=== PATIENT | male | born 1945 | race Caucasian/White ===

== ENCOUNTER 2020-07-06 09:45 | Outpatient (RCR) | payer MEDICARE, SELFPAY ==
[2020-06-29 08:17] VITALS: BP 138/59; PULSE 56; TEMP 36.4
--- NOTE | 2020-06-29 17:00 | HP.PCM_ITS ---
(1) Ulcer of left lower extremity with fat layer exposed Status: Chronic Code(s): L97.922 - Non-pressure chronic ulcer of unspecified part of left lower leg with fat layer exposed (2) Ulcer of right lower extremity with fat layer exposed Status: Chronic Code(s): L97.912 - Non-pressure chronic ulcer of unspecified part of right lower leg with fat layer exposed (3) Venous insufficiency of both lower extremities Status: Chronic Code(s): I87.2 - Venous insufficiency (chronic) (peripheral) (4) COPD (chronic obstructive pulmonary disease) Status: Chronic Code(s): J44.9 - Chronic obstructive pulmonary disease, unspecified (5) Oxygen dependent Status: Acute Code(s): Z99.81 - Dependence on supplemental oxygen (6) CAD (coronary artery disease) of bypass graft Status: Chronic Code(s): I25.810 - Atherosclerosis of coronary artery bypass graft(s) without angina pectoris History of Present Illness Date of Service: 06/29/20 Chief Complaint: Non Healing bilateral lower extremity ulcer History of Wound: Mr. Lazcano is a 74-year-old with past medical history as documented above who was referred to the wound center by his primary care physician due to nonhealing bilateral lower extremity ulcers. Said to have started months ago. Initially seen by his slip injector and applicator who referred him to a [facility] physician. Has been having todd wraps bilaterally which has helped with the swelling but ulcerations have persisted. He sleeps in a chair/recliner. No similar history in the past. No chills, fever or otherwise feeling of unwell. Past Medical History Past Medical History: Chronic Problems Ulcer of left lower extremity with fat layer exposed (Chronic) Ulcer of right lower extremity with fat layer exposed (Chronic) Venous insufficiency of both lower extremities (Chronic) COPD (chronic obstructive pulmonary disease) (Chronic) CAD (coronary artery disease) of bypass graft (Chronic) Home Medications: Ambulatory Orders Medication Instructions Recorded Apixaban [Eliquis] 5 mg 06/29/20 Aspirin/Calcium Carbonate [Lynn 81 mg PO DAILY 06/29/20 Women's Aspirin Tablet] Citalopram [Celexa] 20 mg PO DAILY 06/29/20 Doxazosin Mesylate [Cardura] 1 mg PO QHS 06/29/20 Ezetimibe 10 mg PO DAILY 06/29/20 Folic Acid 800 mg PO DAILY 06/29/20 Furosemide [Lasix] 40 mg PO 06/29/20 Metoprolol Succinate 25 mg PO DAILY 06/29/20 Potassium Chloride 20 meq 06/29/20 Pravastatin [Pravachol] QHS 06/29/20 Review of Systems Constitutional: Denies: Anorexia, Chills, Fever, Night Sweats Eyes: Denies: Blurred vision, Pain, Redness HEENT: Denies: Difficulty Swallowing, Head Aches, Sinus Drainage Cardiovascular: Denies: Chest Pain, Claudication, Chest Pressure, Chest Tightness Respiratory: Denies: Cough, Hemoptysis, Pleuritic Pain, Shortness of Breath Gastrointestinal: Denies: Abdominal Pain, Hematemesis, Vomiting Genitourinary: Denies: Hematuria Skin: Denies: Jaundice - Physical Exam Vital Signs Temp Pulse BP 97.5 F L 56 L 138/59 H 06/29/20 08:17 06/29/20 08:17 06/29/20 08:17 General: Alert, Oriented x3, Cooperative, No apparent distress HEENT: Atraumatic, Normocephalic Oral: Moist Mucosa Neck: Supple Abdomen: Non Tender, Obese Extremities: No cyanosis, Edema Skin: Ulcer/ Wound Wound Measurements and Assessment WC - Nurse 1 - General Ulcer Measurement Start: 06/29/20 08:17 Freq: Status: Active Protocol: Activity Type Activity Date Activity User E-Sign Co-Sign Detail Recorded Client Recorded Date Recorded By Document 06/29/20 08:17 [email or web address] [id number] 06/29/20 08:54 [email or web address] 06/29/20 08:17 Wound Center Nurse 1 [Ulcer Assessment] #3 LLe Lat -Current Size (cm) - Length 18.5 -Current Size (cm) - Width 16.1 -Current Size (cm) - Depth 0.1 -Total Square Cm 297.85 -Photo Taken Yes -Classification - Thickness Full Thickness without Exposed Support Structure -Exudate Amt Small -Exudate Type Serosanguineous -Wound Margin Indistinct, Non -Visible -Granulation Amt Medium (34-66%) -Granulation Quality Oaks -Necrosis Amt Medium (34-66%) -Necrotic Tissue Type Adherent Slough -Structure Exposed N/A -Texture (Milena-wound Skin Appearance) Scarring -Moisture (Milena-wound Skin Appearance No Abnormality ) -Color (Milena-wound Skin Appearance) No Abnormality -Temperature (Milena-wound Skin No Abnormality Appearance) (Pt Warm) -Tenderness on Palpation (Milena-wound No Skin Appearance) -Ulcer Cleansing Wound Cleanser -Foul Odor after Cleansing No -Anesthetic Used 4% Lidocaine Solution #2 LLE MEd -Current Size (cm) - Length 15.2 -Current Size (cm) - Width 4.6 -Current Size (cm) - Depth 0.1 -Total Square Cm 69.92 -Photo Taken Yes -Classification - Thickness Full Thickness without Exposed Support Structure -Exudate Amt Small -Exudate Type Serosanguineous -Wound Margin Indistinct, Non -Visible -Granulation Amt Medium (34-66%) -Granulation Quality Red -Necrosis Amt Medium (34-66%) -Necrotic Tissue Type Adherent Slough -Structure Exposed N/A -Texture (Milena-wound Skin Appearance) Scarring -Moisture (Milena-wound Skin Appearance Dry/Scaly ) -Color (Milena-wound Skin Appearance) No Abnormality -Temperature (Milena-wound Skin No Abnormality Appearance) (Pt Warm) -Tenderness on Palpation (Milena-wound No Skin Appearance) -Ulcer Cleansing Wound Cleanser -Foul Odor after Cleansing No -Anesthetic Used 4% Lidocaine Solution #1 RLE Cluster -Current Size (cm) - Length 19.5 -Current Size (cm) - Width 17.9 -Current Size (cm) - Depth 0.1 -Total Square Cm 349.05 -Photo Taken Yes -Classification - Thickness Full Thickness without Exposed Support Structure -Exudate Amt Medium -Exudate Type Serosanguineous -Wound Margin Indistinct, Non -Visible -Granulation Amt Medium (34-66%) -Granulation Quality Oaks -Necrosis Amt Medium (34-66%) -Necrotic Tissue Type Adherent Slough -Structure Exposed N/A -Texture (Milena-wound Skin Appearance) Scarring -Moisture (Milena-wound Skin Appearance No Abnormality ) -Color (Milena-wound Skin Appearance) No Abnormality -Temperature (Milena-wound Skin No Abnormality Appearance) (Pt Warm) -Ulcer Cleansing Wound Cleanser -Foul Odor after Cleansing No -Anesthetic Used 4% Lidocaine Solution [Edema Assessment] -Right Calf (cm) 38.5 -Right Ankle (cm) 26 -Left Calf (cm) 39 -Left Ankle (cm) 26 WC - Nurse 2 - General Ulcer CM Notes Start: 06/29/20 08:17 Freq: Status: Active Protocol: Activity Type Activity Date Activity User E-Sign Co-Sign Detail Recorded Client Recorded Date Recorded By Document 06/29/20 09:08 MW [id number] 06/29/20 09:22 MW 06/29/20 09:08 Wound Center Nurse 2 [Procedure/Treatment] #3 LLe Lat -Time 09:09 -Correct Patient Yes -Correct Side, Site, Position Yes -Correct Procedure Yes -Procedure Performed Yes -Type of Procedure Debridement -Clinical Debridement Subcutaneous -Tissue Removed Subcutaneous -Post Debridement (cm) - Length 16.0 -Post Debridement (cm) - Width 9.0 -Post Debridement (cm) - Depth 0.1 -Total Square (Post) (cm) 144.00 -Area of Debridement (cm) - Length 16.0 -Area of Debridement (cm) - Width 9.0 -Total Square (Area) (cm) 144.00 -Tunneling No -Undermining/Tunneling No -Circular Undermining No -Wound/Ulcer Outcome Not Healed -Ulcer Cleansing Rinsed/ Irrigated with Saline -Foul Odor after Cleansing No -Bioengineered Tissue No -Bleeding Controlled with Pressure -Offloading No -Treatment Response Procedure Tolerated Well -Debridement - Subq, 1st 20sq cm Yes -Debridement, SubQ, ea addt'l 20sq cm 32 or part thereof #2 LLE MEd -Time 09:09 -Correct Patient Yes -Correct Side, Site, Position Yes -Correct Procedure Yes -Procedure Performed Yes -Type of Procedure Debridement -Clinical Debridement Subcutaneous -Tissue Removed Subcutaneous -Post Debridement (cm) - Length 9.0 -Post Debridement (cm) - Width 6.5 -Post Debridement (cm) - Depth 0.1 -Total Square (Post) (cm) 58.50 -Area of Debridement (cm) - Length 9.0 -Area of Debridement (cm) - Width 6.5 -Total Square (Area) (cm) 58.50 -Tunneling No -Undermining/Tunneling No -Circular Undermining No -Wound/Ulcer Outcome Not Healed -Ulcer Cleansing Rinsed/ Irrigated with Saline -Foul Odor after Cleansing No -Bioengineered Tissue No -Bleeding Controlled with Pressure -Offloading No -Treatment Response Procedure Tolerated Well -Debridement - Subq, 1st 20sq cm No #1 RLE Cluster -Time 09:09 -Correct Patient Yes -Correct Side, Site, Position Yes -Correct Procedure Yes -Procedure Performed Yes -Type of Procedure Debridement -Clinical Debridement Subcutaneous -Tissue Removed Subcutaneous -Post Debridement (cm) - Length 28.0 -Post Debridement (cm) - Width 16.0 -Post Debridement (cm) - Depth 0.1 -Total Square (Post) (cm) 448.00 -Area of Debridement (cm) - Length 28.0 -Area of Debridement (cm) - Width 16.0 -Total Square (Area) (cm) 448.00 -Tunneling No -Undermining/Tunneling No -Circular Undermining No -Wound/Ulcer Outcome Not Healed -Ulcer Cleansing Rinsed/ Irrigated with Saline -Foul Odor after Cleansing No -Bioengineered Tissue No -Bleeding Controlled with Pressure -Offloading No -Treatment Response Procedure Tolerated Well -Debridement - Subq, 1st 20sq cm No [See Physician Procedure note for Specifics] Pain Scale: 0-10 Numeric [Pain] -Is Patient Pain Free? Yes WC - Nurse 3 - General Ulcer D/C NN Start: 06/29/20 08:17 Freq: Status: Active Protocol: Activity Type Activity Date Activity User E-Sign Co-Sign Detail Recorded Client Recorded Date Recorded By Document 06/29/20 09:52 DL [id number] 06/29/20 09:55 DL 06/29/20 09:52 Wound Care Nurse 3 [Wound Dressing] #3 LLe Lat -Ulcer Cleansing Wound Cleanser -Foul Odor after Cleansing No -Primary Dressing Applied Aquacel Extra, NonAdherent Contact Layer -Primary Dressing Covered/Secured Dry Gauze & with Roll Gauze, Secured with Tape -Aquacel Extra 1 #2 LLE MEd -Ulcer Cleansing Rinsed/ Irrigated with Saline -Foul Odor after Cleansing No -Primary Dressing Applied NonAdherent Contact Layer -Other Dressing aquacel ag -Primary Dressing Covered/Secured Dry Gauze & with Roll Gauze, Secured with Tape -Other Covering xerform #1 RLE Cluster -Ulcer Cleansing Rinsed/ Irrigated with Saline -Foul Odor after Cleansing No -Primary Dressing Applied NonAdherent Contact Layer -Other Dressing aquacel ag -Primary Dressing Covered/Secured Dry Gauze & with Roll Gauze, Secured with Tape -Other Covering xeroform [Compression Applied] Left -Tubular Bandage Double Layer -Size of Tubigrip Used Size E Right -Tubular Bandage Double Layer -Size of Tubigrip Used Size E -Size E ($) 2 [Post Procedure Tolerated] -Treatment Response Procedure Tolerated Well Pain Scale: 0-10 Numeric [Pain] -Is Patient Pain Free? Yes WC - Visit Discharge [Visit Discharge Information] -Discharge Condition Stable -Ambulatory Status Ambulatory -Transportation Private Auto [Facility Notification] -Facility Type Home Health -Orders Sent Yes Musculoskeletal: No Muscle Wasting Neurological: Cranial nerves II-XII grossly intact Psych/Mental Status: Normal Affect Debridement Note Post-Debridement Measurements/Treatment WC - Nurse 2 - General Ulcer CM Notes Start: 06/29/20 08:17 Freq: Status: Active Protocol: Activity Type Activity Date Activity User E-Sign Co-Sign Detail Recorded Client Recorded Date Recorded By Document 06/29/20 09:08 MW [id number] 06/29/20 09:22 MW 06/29/20 09:08 Wound Center Nurse 2 #3 LLe Lat -Time 09:09 -Correct Patient Yes -Correct Side, Site, Position Yes -Correct Procedure Yes -Procedure Performed Yes -Type of Procedure Debridement -Clinical Debridement Subcutaneous -Tissue Removed Subcutaneous -Post Debridement (cm) - Length 16.0 -Post Debridement (cm) - Width 9.0 -Post Debridement (cm) - Depth 0.1 -Total Square (Post) (cm) 144.00 -Area of Debridement (cm) - Length 16.0 -Area of Debridement (cm) - Width 9.0 -Total Square (Area) (cm) 144.00 -Tunneling No -Undermining/Tunneling No -Circular Undermining No -Wound/Ulcer Outcome Not Healed -Ulcer Cleansing Rinsed/ Irrigated with Saline -Foul Odor after Cleansing No -Bioengineered Tissue No -Bleeding Controlled with Pressure -Offloading No -Treatment Response Procedure Tolerated Well -Debridement - Subq, 1st 20sq cm Yes -Debridement, SubQ, ea addt'l 20sq cm 32 or part thereof #2 LLE MEd -Time 09:09 -Correct Patient Yes -Correct Side, Site, Position Yes -Correct Procedure Yes -Procedure Performed Yes -Type of Procedure Debridement -Clinical Debridement Subcutaneous -Tissue Removed Subcutaneous -Post Debridement (cm) - Length 9.0 -Post Debridement (cm) - Width 6.5 -Post Debridement (cm) - Depth 0.1 -Total Square (Post) (cm) 58.50 -Area of Debridement (cm) - Length 9.0 -Area of Debridement (cm) - Width 6.5 -Total Square (Area) (cm) 58.50 -Tunneling No -Undermining/Tunneling No -Circular Undermining No -Wound/Ulcer Outcome Not Healed -Ulcer Cleansing Rinsed/ Irrigated with Saline -Foul Odor after Cleansing No -Bioengineered Tissue No -Bleeding Controlled with Pressure -Offloading No -Treatment Response Procedure Tolerated Well -Debridement - Subq, 1st 20sq cm No #1 RLE Cluster -Time 09:09 -Correct Patient Yes -Correct Side, Site, Position Yes -Correct Procedure Yes -Procedure Performed Yes -Type of Procedure Debridement -Clinical Debridement Subcutaneous -Tissue Removed Subcutaneous -Post Debridement (cm) - Length 28.0 -Post Debridement (cm) - Width 16.0 -Post Debridement (cm) - Depth 0.1 -Total Square (Post) (cm) 448.00 -Area of Debridement (cm) - Length 28.0 -Area of Debridement (cm) - Width 16.0 -Total Square (Area) (cm) 448.00 -Tunneling No -Undermining/Tunneling No -Circular Undermining No -Wound/Ulcer Outcome Not Healed -Ulcer Cleansing Rinsed/ Irrigated with Saline -Foul Odor after Cleansing No -Bioengineered Tissue No -Bleeding Controlled with Pressure -Offloading No -Treatment Response Procedure Tolerated Well -Debridement - Subq, 1st 20sq cm No Pain Scale: 0-10 Numeric Is Patient Pain Free? Yes WC - Nurse 3 - General Ulcer D/C NN Start: 06/29/20 08:17 Freq: Status: Active Protocol: Activity Type Activity Date Activity User E-Sign Co-Sign Detail Recorded Client Recorded Date Recorded By Document 06/29/20 09:52 DL [id number] 06/29/20 09:55 DL 06/29/20 09:52 Wound Care Nurse 3 #3 LLe Lat -Ulcer Cleansing Wound Cleanser -Foul Odor after Cleansing No -Primary Dressing Applied Aquacel Extra, NonAdherent Contact Layer -Primary Dressing Covered/Secured with Dry Gauze & Roll Gauze, Secured with Tape -Aquacel Extra 1 #2 LLE MEd -Ulcer Cleansing Rinsed/ Irrigated with Saline -Foul Odor after Cleansing No -Primary Dressing Applied NonAdherent Contact Layer -Other Dressing aquacel ag -Primary Dressing Covered/Secured with Dry Gauze & Roll Gauze, Secured with Tape -Other Covering xerform #1 RLE Cluster -Ulcer Cleansing Rinsed/ Irrigated with Saline -Foul Odor after Cleansing No -Primary Dressing Applied NonAdherent Contact Layer -Other Dressing aquacel ag -Primary Dressing Covered/Secured with Dry Gauze & Roll Gauze, Secured with Tape -Other Covering xeroform Left -Tubular Bandage Double Layer -Size of Tubigrip Used Size E Right -Tubular Bandage Double Layer -Size of Tubigrip Used Size E -Size E ($) 2 Treatment Response Procedure Tolerated Well Pain Scale: 0-10 Numeric Is Patient Pain Free? Yes WC - Visit Discharge Discharge Condition Stable Ambulatory Status Ambulatory Transportation Private [facility] Facility Type Home Health Orders Sent Yes Wound debrided: Right lower extremity cluster Type of Debridement: Excisional debridement Anesthesia Used: 4% Lidocaine Solution Depth: Down to and including healthy tissue, in the subcutaneous layer Percentage of wound debrided: 100 Instrument Used: 7mm curette Tissue Removed: Slough and devitalized tissue Severity: Fat Layer Exposed Amount of bleeding with debridement: Mild Bleeding Controlled with: Pressure Patient tolerated procedure well - Additional Wound Wound debrided: Left lower extremity medial cluster Type of Debridement: Excisional debridement Anesthesia Used: 4% Lidocaine Solution Depth: Down to and including healthy tissue, in the subcutaneous layer Percentage of wound debrided: 100 Instrument Used: 7mm curette Tissue Removed: Slough and devitalized tissue Severity: Fat Layer Exposed Amount of bleeding with debridement: Mild Bleeding Controlled with: Pressure Patient tolerated procedure: Patient tolerated procedure well - Additional Wound Wound debrided: Left lower extremity lateral cluster Type of Debridement: Excisional debridement Anesthesia Used: 4% Lidocaine Solution Depth: Down to and including healthy tissue, in the subcutaneous layer Percentage of wound debrided: 100 Instrument Used: 5mm curette Tissue Removed: Slough and devitalized tissue Severity: Fat Layer Exposed Amount of bleeding with debridement: Mild Bleeding Controlled with: Pressure Patient tolerated procedure: Patient tolerated procedure well Assessment/Plan Active Problems Ulcer of left lower extremity with fat layer exposed (Chronic) Ulcer of right lower extremity with fat layer exposed (Chronic) Venous insufficiency of both lower extremities (Chronic) COPD (chronic obstructive pulmonary disease) (Chronic) Oxygen dependent (Acute) CAD (coronary artery disease) of bypass graft (Chronic) Assessment: Nonhealing bilateral lower extremity ulcers secondary to venous insufficiency. Plan: Debridement done as documented above, procedure was well-tolerated. Venous and vascular studies ordered. Aquacel to open areas with Xeroform over reddened areas. Change daily. Double layer Tubigrip's and Todd wraps for edema management. Elevate lower extremities when seated and in bed. Increase protein intake, vitamin C and zinc recommended. Their questions were answered and they were advised to call with any further questions or concerns. We will get recent labs from PCP. Follow-up in a week. This note was generated with [employer] dictation software. It may contain incorrect words, spelling, and punctuation that were not noted in checking the note before signing. Multi Select Codes - Visit Charges Office Visit/Consults: 68985 OV L4 New - Integumentary Integumentary CPT Codes: 41295 June subq tissue 20 sq cm/< - Additional square centimeter debrided ( x 32 ), please refer to clinical note.
[2020-07-06 09:43] VITALS: BP 119/50; PULSE 68; TEMP 36.7
--- NOTE | 2020-07-06 14:11 | PN.PCM_ITS ---
History of Present Illness Date of Service: 07/06/20 Chief Complaint: Non Healing bilateral lower extremity ulcer History of Wound: Mr. Lazcano is a 74-year-old with past medical history as documented above who was referred to the wound center by his primary care physician due to nonhealing bilateral lower extremity ulcers. Said to have started months ago. Initially seen by his financial specialist who referred him to a primary care physician. Has been having ary wraps bilaterally which has helped with the swelling but ulcerations have persisted. He sleeps in a chair/recliner. No similar history in the past. No chills, fever or otherwise feeling of unwell. Subjective Subjective: No new concerns at this time. Ulcers said to be improving. Objective Data Objective Data Vital Signs: Vital Signs Temp Pulse BP 98.0 F 68 119/50 L 07/06/20 09:43 07/06/20 09:43 07/06/20 09:43 Exam Physical Exam Const alert, oriented x3 and no apparent distress General Appearance: cooperative HEENT normocephalic and hearing grossly normal bilaterally Head and Scalp: normal to inspection and atraumatic Eyes EOMs intact bilaterally Neck full ROM and supple General: normal visual inspection Resp normal respiratory effort Effort and Inspection: able to speak in complete sentences Skin Wounds: wounds noted Neuro oriented x3, CN's II-XII intact bilaterally and moves all extremities Psych mental status grossly normal Appearance: grossly normal Assessment and Debridement #1 RLE Cluster: Wound Measurements and Assessment WC - Nurse 1 - General Ulcer Measurement Start: 06/29/20 08:17 Freq: Status: Active Protocol: Activity Type Activity Date Activity User E-Sign Co-Sign Detail Recorded Client Recorded Date Recorded By Document 07/06/20 09:43 [email or web address] [id number] 07/06/20 09:54 CATRACHITA 07/06/20 09:43 Wound Center Nurse 1 [Ulcer Assessment] #3 LLe Lat -Current Size (cm) - Length 14 -Current Size (cm) - Width 8 -Current Size (cm) - Depth 0.1 -Total Square Cm 112 -Exudate Amt Medium -Exudate Type Serosanguineous -Wound Margin Distinct, Outline Attached -Granulation Amt Large (67-100%) -Granulation Quality Red -Slough/Fibrin No -Texture (Milena-wound Skin Appearance) Assessed, Scarring -Moisture (Milena-wound Skin Appearance No Abnormality, ) Assessed -Color (Milena-wound Skin Appearance) No Abnormality, Assessed -Temperature (Milena-wound Skin No Abnormality Appearance) (Pt Warm) -Tenderness on Palpation (Milena-wound No Skin Appearance) -Ulcer Cleansing Rinsed/ Irrigated with Saline -Foul Odor after Cleansing No -Anesthetic Used 4% Lidocaine Solution #2 LLE MEd -Current Size (cm) - Length 6 -Current Size (cm) - Width 5.5 -Current Size (cm) - Depth 0.1 -Total Square Cm 33.0 -Exudate Amt Medium -Exudate Type Serosanguineous -Wound Margin Distinct, Outline Attached -Granulation Amt Large (67-100%) -Granulation Quality Red -Slough/Fibrin No -Texture (Milena-wound Skin Appearance) Assessed, Scarring -Moisture (Milena-wound Skin Appearance No Abnormality, ) Assessed -Color (Milena-wound Skin Appearance) No Abnormality, Assessed -Temperature (Milena-wound Skin No Abnormality Appearance) (Pt Warm) -Tenderness on Palpation (Milena-wound No Skin Appearance) -Ulcer Cleansing Rinsed/ Irrigated with Saline -Foul Odor after Cleansing No -Anesthetic Used 4% Lidocaine Solution #1 RLE Cluster -Current Size (cm) - Length 20 -Current Size (cm) - Width 10 -Current Size (cm) - Depth 0.1 -Total Square Cm 200 -Exudate Amt Medium -Exudate Type Serosanguineous -Wound Margin Distinct, Outline Attached -Granulation Amt Large (67-100%) -Granulation Quality Red -Slough/Fibrin No -Texture (Milena-wound Skin Appearance) Assessed, Scarring -Moisture (Milena-wound Skin Appearance No Abnormality, ) Assessed -Color (Milena-wound Skin Appearance) No Abnormality, Assessed -Temperature (Milena-wound Skin No Abnormality Appearance) (Pt Warm) -Tenderness on Palpation (Milena-wound No Skin Appearance) -Ulcer Cleansing Rinsed/ Irrigated with Saline -Foul Odor after Cleansing No -Anesthetic Used 4% Lidocaine Solution [Edema Assessment] -Right Calf (cm) 39 -Right Ankle (cm) 27 -Left Calf (cm) 40 -Left Ankle (cm) 29 WC - Nurse 2 - General Ulcer CM Notes Start: 06/29/20 08:17 Freq: Status: Active Protocol: Activity Type Activity Date Activity User E-Sign Co-Sign Detail Recorded Client Recorded Date Recorded By Document 07/06/20 10:31 MW [id number] 07/06/20 10:41 MW 07/06/20 10:31 Wound Center Nurse 2 [Procedure/Treatment] #4 left velazquez cluster -Time 10:40 -Correct Patient Yes -Correct Side, Site, Position Yes -Correct Procedure Yes -Procedure Performed Yes -Type of Procedure Debridement -Clinical Debridement Subcutaneous -Tissue Removed Subcutaneous -Post Debridement (cm) - Length 10.0 -Post Debridement (cm) - Width 2.0 -Post Debridement (cm) - Depth 0.1 -Total Square (Post) (cm) 20.00 -Area of Debridement (cm) - Length 10.0 -Area of Debridement (cm) - Width 2.0 -Total Square (Area) (cm) 20.00 -Tunneling No -Undermining/Tunneling No -Circular Undermining No -Wound/Ulcer Outcome Not Healed -Ulcer Cleansing Rinsed/ Irrigated with Saline -Foul Odor after Cleansing No -Bioengineered Tissue No -Bleeding Controlled with Pressure -Offloading No -Treatment Response Procedure Tolerated Well -Debridement - Subq, 1st 20sq cm No #3 LLe Lat -Time 10:31 -Correct Patient Yes -Correct Side, Site, Position Yes -Correct Procedure Yes -Procedure Performed Yes -Type of Procedure Debridement -Clinical Debridement Subcutaneous -Tissue Removed Subcutaneous -Post Debridement (cm) - Length 0.1 -Post Debridement (cm) - Width 0.1 -Post Debridement (cm) - Depth 0.1 -Total Square (Post) (cm) 0.01 -Area of Debridement (cm) - Length 0.1 -Area of Debridement (cm) - Width 0.1 -Total Square (Area) (cm) 0.01 -Tunneling No -Undermining/Tunneling No -Circular Undermining No -Wound/Ulcer Outcome Not Healed -Ulcer Cleansing Rinsed/ Irrigated with Saline -Foul Odor after Cleansing No -Bioengineered Tissue No -Bleeding Controlled with Pressure -Offloading No -Treatment Response Procedure Tolerated Well -Debridement - Subq, 1st 20sq cm Yes #2 LLE MEd -Time 10:32 -Correct Patient Yes -Correct Side, Site, Position Yes -Correct Procedure Yes -Procedure Performed Yes -Type of Procedure Debridement -Clinical Debridement Subcutaneous -Tissue Removed Subcutaneous -Post Debridement (cm) - Length 0.1 -Post Debridement (cm) - Width 0.1 -Post Debridement (cm) - Depth 0.1 -Total Square (Post) (cm) 0.01 -Area of Debridement (cm) - Length 0.1 -Area of Debridement (cm) - Width 0.1 -Total Square (Area) (cm) 0.01 -Tunneling No -Undermining/Tunneling No -Circular Undermining No -Wound/Ulcer Outcome Not Healed -Ulcer Cleansing Rinsed/ Irrigated with Saline -Foul Odor after Cleansing No -Bioengineered Tissue No -Bleeding Controlled with Pressure -Offloading No -Treatment Response Procedure Tolerated Well -Debridement - Subq, 1st 20sq cm No #1 RLE Cluster -Time 10:32 -Correct Patient Yes -Correct Side, Site, Position Yes -Correct Procedure Yes -Procedure Performed Yes -Type of Procedure Debridement -Clinical Debridement Subcutaneous -Tissue Removed Subcutaneous -Post Debridement (cm) - Length 15.5 -Post Debridement (cm) - Width 12.0 -Post Debridement (cm) - Depth 0.1 -Total Square (Post) (cm) 186.00 -Area of Debridement (cm) - Length 15.5 -Area of Debridement (cm) - Width 12.0 -Total Square (Area) (cm) 186.00 -Tunneling No -Undermining/Tunneling No -Circular Undermining No -Wound/Ulcer Outcome Not Healed -Ulcer Cleansing Rinsed/ Irrigated with Saline -Foul Odor after Cleansing No -Bioengineered Tissue No -Bleeding Controlled with Pressure -Offloading No -Treatment Response Procedure Tolerated Well -Debridement - Subq, 1st 20sq cm No -Debridement, SubQ, ea addt'l 20sq cm 9 or part thereof [See Physician Procedure note for Specifics] Pain Scale: 0-10 Numeric [Pain] -Is Patient Pain Free? Yes Wound Debrided: Right lower extremity cluster Type of Debridement: Excisional debridement Anesthesia Used: 4% Lidocaine Solution Depth: Down to and including healthy tissue Percentage of Wound Debrided: 100 Instrument Used: 5mm curette Tissue Removed: Slough and devitalized tissue Severity: Fat Layer Exposed Bleeding Controlled with: Pressure Patient Tolerated Procedure: Patient tolerated procedure well #2 LLE MEd: Wound Measurements and Assessment WC - Nurse 1 - General Ulcer Measurement Start: 06/29/20 08:17 Freq: Status: Active Protocol: Activity Type Activity Date Activity User E-Sign Co-Sign Detail Recorded Client Recorded Date Recorded By Document 07/06/20 09:43 [email or web address] [id number] 07/06/20 09:54 CATRACHITA 07/06/20 09:43 Wound Center Nurse 1 [Ulcer Assessment] #3 LLe Lat -Current Size (cm) - Length 14 -Current Size (cm) - Width 8 -Current Size (cm) - Depth 0.1 -Total Square Cm 112 -Exudate Amt Medium -Exudate Type Serosanguineous -Wound Margin Distinct, Outline Attached -Granulation Amt Large (67-100%) -Granulation Quality Red -Slough/Fibrin No -Texture (Milena-wound Skin Appearance) Assessed, Scarring -Moisture (Milena-wound Skin Appearance No Abnormality, ) Assessed -Color (Milena-wound Skin Appearance) No Abnormality, Assessed -Temperature (Milena-wound Skin No Abnormality Appearance) (Pt Warm) -Tenderness on Palpation (Milena-wound No Skin Appearance) -Ulcer Cleansing Rinsed/ Irrigated with Saline -Foul Odor after Cleansing No -Anesthetic Used 4% Lidocaine Solution #2 LLE MEd -Current Size (cm) - Length 6 -Current Size (cm) - Width 5.5 -Current Size (cm) - Depth 0.1 -Total Square Cm 33.0 -Exudate Amt Medium -Exudate Type Serosanguineous -Wound Margin Distinct, Outline Attached -Granulation Amt Large (67-100%) -Granulation Quality Red -Slough/Fibrin No -Texture (Milena-wound Skin Appearance) Assessed, Scarring -Moisture (Milena-wound Skin Appearance No Abnormality, ) Assessed -Color (Milena-wound Skin Appearance) No Abnormality, Assessed -Temperature (Milena-wound Skin No Abnormality Appearance) (Pt Warm) -Tenderness on Palpation (Milena-wound No Skin Appearance) -Ulcer Cleansing Rinsed/ Irrigated with Saline -Foul Odor after Cleansing No -Anesthetic Used 4% Lidocaine Solution #1 RLE Cluster -Current Size (cm) - Length 20 -Current Size (cm) - Width 10 -Current Size (cm) - Depth 0.1 -Total Square Cm 200 -Exudate Amt Medium -Exudate Type Serosanguineous -Wound Margin Distinct, Outline Attached -Granulation Amt Large (67-100%) -Granulation Quality Red -Slough/Fibrin No -Texture (Milena-wound Skin Appearance) Assessed, Scarring -Moisture (Milena-wound Skin Appearance No Abnormality, ) Assessed -Color (Milena-wound Skin Appearance) No Abnormality, Assessed -Temperature (Milena-wound Skin No Abnormality Appearance) (Pt Warm) -Tenderness on Palpation (Milena-wound No Skin Appearance) -Ulcer Cleansing Rinsed/ Irrigated with Saline -Foul Odor after Cleansing No -Anesthetic Used 4% Lidocaine Solution [Edema Assessment] -Right Calf (cm) 39 -Right Ankle (cm) 27 -Left Calf (cm) 40 -Left Ankle (cm) 29 WC - Nurse 2 - General Ulcer CM Notes Start: 06/29/20 08:17 Freq: Status: Active Protocol: Activity Type Activity Date Activity User E-Sign Co-Sign Detail Recorded Client Recorded Date Recorded By Document 07/06/20 10:31 MW [id number] 07/06/20 10:41 MW 07/06/20 10:31 Wound Center Nurse 2 [Procedure/Treatment] #4 left velazquez cluster -Time 10:40 -Correct Patient Yes -Correct Side, Site, Position Yes -Correct Procedure Yes -Procedure Performed Yes -Type of Procedure Debridement -Clinical Debridement Subcutaneous -Tissue Removed Subcutaneous -Post Debridement (cm) - Length 10.0 -Post Debridement (cm) - Width 2.0 -Post Debridement (cm) - Depth 0.1 -Total Square (Post) (cm) 20.00 -Area of Debridement (cm) - Length 10.0 -Area of Debridement (cm) - Width 2.0 -Total Square (Area) (cm) 20.00 -Tunneling No -Undermining/Tunneling No -Circular Undermining No -Wound/Ulcer Outcome Not Healed -Ulcer Cleansing Rinsed/ Irrigated with Saline -Foul Odor after Cleansing No -Bioengineered Tissue No -Bleeding Controlled with Pressure -Offloading No -Treatment Response Procedure Tolerated Well -Debridement - Subq, 1st 20sq cm No #3 LLe Lat -Time 10:31 -Correct Patient Yes -Correct Side, Site, Position Yes -Correct Procedure Yes -Procedure Performed Yes -Type of Procedure Debridement -Clinical Debridement Subcutaneous -Tissue Removed Subcutaneous -Post Debridement (cm) - Length 0.1 -Post Debridement (cm) - Width 0.1 -Post Debridement (cm) - Depth 0.1 -Total Square (Post) (cm) 0.01 -Area of Debridement (cm) - Length 0.1 -Area of Debridement (cm) - Width 0.1 -Total Square (Area) (cm) 0.01 -Tunneling No -Undermining/Tunneling No -Circular Undermining No -Wound/Ulcer Outcome Not Healed -Ulcer Cleansing Rinsed/ Irrigated with Saline -Foul Odor after Cleansing No -Bioengineered Tissue No -Bleeding Controlled with Pressure -Offloading No -Treatment Response Procedure Tolerated Well -Debridement - Subq, 1st 20sq cm Yes #2 LLE MEd -Time 10:32 -Correct Patient Yes -Correct Side, Site, Position Yes -Correct Procedure Yes -Procedure Performed Yes -Type of Procedure Debridement -Clinical Debridement Subcutaneous -Tissue Removed Subcutaneous -Post Debridement (cm) - Length 0.1 -Post Debridement (cm) - Width 0.1 -Post Debridement (cm) - Depth 0.1 -Total Square (Post) (cm) 0.01 -Area of Debridement (cm) - Length 0.1 -Area of Debridement (cm) - Width 0.1 -Total Square (Area) (cm) 0.01 -Tunneling No -Undermining/Tunneling No -Circular Undermining No -Wound/Ulcer Outcome Not Healed -Ulcer Cleansing Rinsed/ Irrigated with Saline -Foul Odor after Cleansing No -Bioengineered Tissue No -Bleeding Controlled with Pressure -Offloading No -Treatment Response Procedure Tolerated Well -Debridement - Subq, 1st 20sq cm No #1 E Cluster -Time 10:32 -Correct Patient Yes -Correct Side, Site, Position Yes -Correct Procedure Yes -Procedure Performed Yes -Type of Procedure Debridement -Clinical Debridement Subcutaneous -Tissue Removed Subcutaneous -Post Debridement (cm) - Length 15.5 -Post Debridement (cm) - Width 12.0 -Post Debridement (cm) - Depth 0.1 -Total Square (Post) (cm) 186.00 -Area of Debridement (cm) - Length 15.5 -Area of Debridement (cm) - Width 12.0 -Total Square (Area) (cm) 186.00 -Tunneling No -Undermining/Tunneling No -Circular Undermining No -Wound/Ulcer Outcome Not Healed -Ulcer Cleansing Rinsed/ Irrigated with Saline -Foul Odor after Cleansing No -Bioengineered Tissue No -Bleeding Controlled with Pressure -Offloading No -Treatment Response Procedure Tolerated Well -Debridement - Subq, 1st 20sq cm No -Debridement, SubQ, ea addt'l 20sq cm 9 or part thereof [See Physician Procedure note for Specifics] Pain Scale: 0-10 Numeric [Pain] -Is Patient Pain Free? Yes #3 LLe Lat: Wound Measurements and Assessment WC - Nurse 1 - General Ulcer Measurement Start: 06/29/20 08:17 Freq: Status: Active Protocol: Activity Type Activity Date Activity User E-Sign Co-Sign Detail Recorded Client Recorded Date Recorded By Document 07/06/20 09:43 [email or web address] [id number] 07/06/20 09:54 CATRACHITA 07/06/20 09:43 Wound Center Nurse 1 [Ulcer Assessment] #3 LLe Lat -Current Size (cm) - Length 14 -Current Size (cm) - Width 8 -Current Size (cm) - Depth 0.1 -Total Square Cm 112 -Exudate Amt Medium -Exudate Type Serosanguineous -Wound Margin Distinct, Outline Attached -Granulation Amt Large (67-100%) -Granulation Quality Red -Slough/Fibrin No -Texture (Milena-wound Skin Appearance) Assessed, Scarring -Moisture (Milena-wound Skin Appearance No Abnormality, ) Assessed -Color (Milena-wound Skin Appearance) No Abnormality, Assessed -Temperature (Milena-wound Skin No Abnormality Appearance) (Pt Warm) -Tenderness on Palpation (Milena-wound No Skin Appearance) -Ulcer Cleansing Rinsed/ Irrigated with Saline -Foul Odor after Cleansing No -Anesthetic Used 4% Lidocaine Solution #2 LLE MEd -Current Size (cm) - Length 6 -Current Size (cm) - Width 5.5 -Current Size (cm) - Depth 0.1 -Total Square Cm 33.0 -Exudate Amt Medium -Exudate Type Serosanguineous -Wound Margin Distinct, Outline Attached -Granulation Amt Large (67-100%) -Granulation Quality Red -Slough/Fibrin No -Texture (Milena-wound Skin Appearance) Assessed, Scarring -Moisture (Milena-wound Skin Appearance No Abnormality, ) Assessed -Color (Milena-wound Skin Appearance) No Abnormality, Assessed -Temperature (Milena-wound Skin No Abnormality Appearance) (Pt Warm) -Tenderness on Palpation (Milena-wound No Skin Appearance) -Ulcer Cleansing Rinsed/ Irrigated with Saline -Foul Odor after Cleansing No -Anesthetic Used 4% Lidocaine Solution #1 RLE Cluster -Current Size (cm) - Length 20 -Current Size (cm) - Width 10 -Current Size (cm) - Depth 0.1 -Total Square Cm 200 -Exudate Amt Medium -Exudate Type Serosanguineous -Wound Margin Distinct, Outline Attached -Granulation Amt Large (67-100%) -Granulation Quality Red -Slough/Fibrin No -Texture (Milena-wound Skin Appearance) Assessed, Scarring -Moisture (Milena-wound Skin Appearance No Abnormality, ) Assessed -Color (Milena-wound Skin Appearance) No Abnormality, Assessed -Temperature (Milena-wound Skin No Abnormality Appearance) (Pt Warm) -Tenderness on Palpation (Milena-wound No Skin Appearance) -Ulcer Cleansing Rinsed/ Irrigated with Saline -Foul Odor after Cleansing No -Anesthetic Used 4% Lidocaine Solution [Edema Assessment] -Right Calf (cm) 39 -Right Ankle (cm) 27 -Left Calf (cm) 40 -Left Ankle (cm) 29 WC - Nurse 2 - General Ulcer CM Notes Start: 06/29/20 08:17 Freq: Status: Active Protocol: Activity Type Activity Date Activity User E-Sign Co-Sign Detail Recorded Client Recorded Date Recorded By Document 07/06/20 10:31 MW [id number] 07/06/20 10:41 MW 07/06/20 10:31 Wound Center Nurse 2 [Procedure/Treatment] #4 left velazquez cluster -Time 10:40 -Correct Patient Yes -Correct Side, Site, Position Yes -Correct Procedure Yes -Procedure Performed Yes -Type of Procedure Debridement -Clinical Debridement Subcutaneous -Tissue Removed Subcutaneous -Post Debridement (cm) - Length 10.0 -Post Debridement (cm) - Width 2.0 -Post Debridement (cm) - Depth 0.1 -Total Square (Post) (cm) 20.00 -Area of Debridement (cm) - Length 10.0 -Area of Debridement (cm) - Width 2.0 -Total Square (Area) (cm) 20.00 -Tunneling No -Undermining/Tunneling No -Circular Undermining No -Wound/Ulcer Outcome Not Healed -Ulcer Cleansing Rinsed/ Irrigated with Saline -Foul Odor after Cleansing No -Bioengineered Tissue No -Bleeding Controlled with Pressure -Offloading No -Treatment Response Procedure Tolerated Well -Debridement - Subq, 1st 20sq cm No #3 LLe Lat -Time 10:31 -Correct Patient Yes -Correct Side, Site, Position Yes -Correct Procedure Yes -Procedure Performed Yes -Type of Procedure Debridement -Clinical Debridement Subcutaneous -Tissue Removed Subcutaneous -Post Debridement (cm) - Length 0.1 -Post Debridement (cm) - Width 0.1 -Post Debridement (cm) - Depth 0.1 -Total Square (Post) (cm) 0.01 -Area of Debridement (cm) - Length 0.1 -Area of Debridement (cm) - Width 0.1 -Total Square (Area) (cm) 0.01 -Tunneling No -Undermining/Tunneling No -Circular Undermining No -Wound/Ulcer Outcome Not Healed -Ulcer Cleansing Rinsed/ Irrigated with Saline -Foul Odor after Cleansing No -Bioengineered Tissue No -Bleeding Controlled with Pressure -Offloading No -Treatment Response Procedure Tolerated Well -Debridement - Subq, 1st 20sq cm Yes #2 LLE MEd -Time 10:32 -Correct Patient Yes -Correct Side, Site, Position Yes -Correct Procedure Yes -Procedure Performed Yes -Type of Procedure Debridement -Clinical Debridement Subcutaneous -Tissue Removed Subcutaneous -Post Debridement (cm) - Length 0.1 -Post Debridement (cm) - Width 0.1 -Post Debridement (cm) - Depth 0.1 -Total Square (Post) (cm) 0.01 -Area of Debridement (cm) - Length 0.1 -Area of Debridement (cm) - Width 0.1 -Total Square (Area) (cm) 0.01 -Tunneling No -Undermining/Tunneling No -Circular Undermining No -Wound/Ulcer Outcome Not Healed -Ulcer Cleansing Rinsed/ Irrigated with Saline -Foul Odor after Cleansing No -Bioengineered Tissue No -Bleeding Controlled with Pressure -Offloading No -Treatment Response Procedure Tolerated Well -Debridement - Subq, 1st 20sq cm No #1 RLE Cluster -Time 10:32 -Correct Patient Yes -Correct Side, Site, Position Yes -Correct Procedure Yes -Procedure Performed Yes -Type of Procedure Debridement -Clinical Debridement Subcutaneous -Tissue Removed Subcutaneous -Post Debridement (cm) - Length 15.5 -Post Debridement (cm) - Width 12.0 -Post Debridement (cm) - Depth 0.1 -Total Square (Post) (cm) 186.00 -Area of Debridement (cm) - Length 15.5 -Area of Debridement (cm) - Width 12.0 -Total Square (Area) (cm) 186.00 -Tunneling No -Undermining/Tunneling No -Circular Undermining No -Wound/Ulcer Outcome Not Healed -Ulcer Cleansing Rinsed/ Irrigated with Saline -Foul Odor after Cleansing No -Bioengineered Tissue No -Bleeding Controlled with Pressure -Offloading No -Treatment Response Procedure Tolerated Well -Debridement - Subq, 1st 20sq cm No -Debridement, SubQ, ea addt'l 20sq cm 9 or part thereof [See Physician Procedure note for Specifics] Pain Scale: 0-10 Numeric [Pain] -Is Patient Pain Free? Yes #4 left velazquez cluster: Wound Measurements and Assessment WC - Nurse 1 - General Ulcer Measurement Start: 06/29/20 08:17 Freq: Status: Active Protocol: Activity Type Activity Date Activity User E-Sign Co-Sign Detail Recorded Client Recorded Date Recorded By Document 07/06/20 09:43 [email or web address] [id number] 07/06/20 09:54 CATRACHITA 07/06/20 09:43 Wound Center Nurse 1 [Ulcer Assessment] #3 LLe Lat -Current Size (cm) - Length 14 -Current Size (cm) - Width 8 -Current Size (cm) - Depth 0.1 -Total Square Cm 112 -Exudate Amt Medium -Exudate Type Serosanguineous -Wound Margin Distinct, Outline Attached -Granulation Amt Large (67-100%) -Granulation Quality Red -Slough/Fibrin No -Texture (Milena-wound Skin Appearance) Assessed, Scarring -Moisture (Milena-wound Skin Appearance No Abnormality, ) Assessed -Color (Milena-wound Skin Appearance) No Abnormality, Assessed -Temperature (Milena-wound Skin No Abnormality Appearance) (Pt Warm) -Tenderness on Palpation (Milena-wound No Skin Appearance) -Ulcer Cleansing Rinsed/ Irrigated with Saline -Foul Odor after Cleansing No -Anesthetic Used 4% Lidocaine Solution #2 LLE MEd -Current Size (cm) - Length 6 -Current Size (cm) - Width 5.5 -Current Size (cm) - Depth 0.1 -Total Square Cm 33.0 -Exudate Amt Medium -Exudate Type Serosanguineous -Wound Margin Distinct, Outline Attached -Granulation Amt Large (67-100%) -Granulation Quality Red -Slough/Fibrin No -Texture (Milena-wound Skin Appearance) Assessed, Scarring -Moisture (Milena-wound Skin Appearance No Abnormality, ) Assessed -Color (Milena-wound Skin Appearance) No Abnormality, Assessed -Temperature (Milena-wound Skin No Abnormality Appearance) (Pt Warm) -Tenderness on Palpation (Milena-wound No Skin Appearance) -Ulcer Cleansing Rinsed/ Irrigated with Saline -Foul Odor after Cleansing No -Anesthetic Used 4% Lidocaine Solution #1 RLE Cluster -Current Size (cm) - Length 20 -Current Size (cm) - Width 10 -Current Size (cm) - Depth 0.1 -Total Square Cm 200 -Exudate Amt Medium -Exudate Type Serosanguineous -Wound Margin Distinct, Outline Attached -Granulation Amt Large (67-100%) -Granulation Quality Red -Slough/Fibrin No -Texture (Milena-wound Skin Appearance) Assessed, Scarring -Moisture (Milena-wound Skin Appearance No Abnormality, ) Assessed -Color (Milena-wound Skin Appearance) No Abnormality, Assessed -Temperature (Milena-wound Skin No Abnormality Appearance) (Pt Warm) -Tenderness on Palpation (Milena-wound No Skin Appearance) -Ulcer Cleansing Rinsed/ Irrigated with Saline -Foul Odor after Cleansing No -Anesthetic Used 4% Lidocaine Solution [Edema Assessment] -Right Calf (cm) 39 -Right Ankle (cm) 27 -Left Calf (cm) 40 -Left Ankle (cm) 29 WC - Nurse 2 - General Ulcer CM Notes Start: 06/29/20 08:17 Freq: Status: Active Protocol: Activity Type Activity Date Activity User E-Sign Co-Sign Detail Recorded Client Recorded Date Recorded By Document 07/06/20 10:31 MW [id number] 07/06/20 10:41 MW 07/06/20 10:31 Wound Center Nurse 2 [Procedure/Treatment] #4 left velazquez cluster -Time 10:40 -Correct Patient Yes -Correct Side, Site, Position Yes -Correct Procedure Yes -Procedure Performed Yes -Type of Procedure Debridement -Clinical Debridement Subcutaneous -Tissue Removed Subcutaneous -Post Debridement (cm) - Length 10.0 -Post Debridement (cm) - Width 2.0 -Post Debridement (cm) - Depth 0.1 -Total Square (Post) (cm) 20.00 -Area of Debridement (cm) - Length 10.0 -Area of Debridement (cm) - Width 2.0 -Total Square (Area) (cm) 20.00 -Tunneling No -Undermining/Tunneling No -Circular Undermining No -Wound/Ulcer Outcome Not Healed -Ulcer Cleansing Rinsed/ Irrigated with Saline -Foul Odor after Cleansing No -Bioengineered Tissue No -Bleeding Controlled with Pressure -Offloading No -Treatment Response Procedure Tolerated Well -Debridement - Subq, 1st 20sq cm No #3 LLe Lat -Time 10:31 -Correct Patient Yes -Correct Side, Site, Position Yes -Correct Procedure Yes -Procedure Performed Yes -Type of Procedure Debridement -Clinical Debridement Subcutaneous -Tissue Removed Subcutaneous -Post Debridement (cm) - Length 0.1 -Post Debridement (cm) - Width 0.1 -Post Debridement (cm) - Depth 0.1 -Total Square (Post) (cm) 0.01 -Area of Debridement (cm) - Length 0.1 -Area of Debridement (cm) - Width 0.1 -Total Square (Area) (cm) 0.01 -Tunneling No -Undermining/Tunneling No -Circular Undermining No -Wound/Ulcer Outcome Not Healed -Ulcer Cleansing Rinsed/ Irrigated with Saline -Foul Odor after Cleansing No -Bioengineered Tissue No -Bleeding Controlled with Pressure -Offloading No -Treatment Response Procedure Tolerated Well -Debridement - Subq, 1st 20sq cm Yes #2 LLE MEd -Time 10:32 -Correct Patient Yes -Correct Side, Site, Position Yes -Correct Procedure Yes -Procedure Performed Yes -Type of Procedure Debridement -Clinical Debridement Subcutaneous -Tissue Removed Subcutaneous -Post Debridement (cm) - Length 0.1 -Post Debridement (cm) - Width 0.1 -Post Debridement (cm) - Depth 0.1 -Total Square (Post) (cm) 0.01 -Area of Debridement (cm) - Length 0.1 -Area of Debridement (cm) - Width 0.1 -Total Square (Area) (cm) 0.01 -Tunneling No -Undermining/Tunneling No -Circular Undermining No -Wound/Ulcer Outcome Not Healed -Ulcer Cleansing Rinsed/ Irrigated with Saline -Foul Odor after Cleansing No -Bioengineered Tissue No -Bleeding Controlled with Pressure -Offloading No -Treatment Response Procedure Tolerated Well -Debridement - Subq, 1st 20sq cm No #1 RLE Cluster -Time 10:32 -Correct Patient Yes -Correct Side, Site, Position Yes -Correct Procedure Yes -Procedure Performed Yes -Type of Procedure Debridement -Clinical Debridement Subcutaneous -Tissue Removed Subcutaneous -Post Debridement (cm) - Length 15.5 -Post Debridement (cm) - Width 12.0 -Post Debridement (cm) - Depth 0.1 -Total Square (Post) (cm) 186.00 -Area of Debridement (cm) - Length 15.5 -Area of Debridement (cm) - Width 12.0 -Total Square (Area) (cm) 186.00 -Tunneling No -Undermining/Tunneling No -Circular Undermining No -Wound/Ulcer Outcome Not Healed -Ulcer Cleansing Rinsed/ Irrigated with Saline -Foul Odor after Cleansing No -Bioengineered Tissue No -Bleeding Controlled with Pressure -Offloading No -Treatment Response Procedure Tolerated Well -Debridement - Subq, 1st 20sq cm No -Debridement, SubQ, ea addt'l 20sq cm 9 or part thereof [See Physician Procedure note for Specifics] Pain Scale: 0-10 Numeric [Pain] -Is Patient Pain Free? 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 Improving Ulcers. Continue Aquacel with Xeroform over top. Could not afford CircAid's, double layer Tubigrip for edema management. Elevate lower extremities when seated in bed. Increase protein intake, vitamin C and zinc also recommended. His questions were answered and he was advised to call with any further questions or concerns. Follow-up in a week. This note was generated with [employer] dictation software. It may contain incorrect words, spelling, and punctuation that were not noted in checking the note before signing. Charges/Coding 111xxx-113xx: 93001 June subq tissue 20 sq cm/< Add On Codes: 91696 June subq tissue add-on (Additional square centimeter debride d, please refer to clinical note.)
== END 2020-07-07 23:59 ==
LOC: WC 09:45
PROVIDERS: PCP Family Medicine; Referring Provider Family Medicine; Visit Provider Internal Medicine
DX: L97.812 Non-pressure chronic ulcer of other part of right lower leg with fat layer exposed (principal); L97.822 Non-pressure chronic ulcer of other part of left lower leg with fat layer exposed; I87.2 Venous insufficiency (chronic) (peripheral); I25.10 Atherosclerotic heart disease of native coronary artery without angina pectoris; J44.9 Chronic obstructive pulmonary disease, unspecified; Z79.82 Long term (current) use of aspirin; Z79.01 Long term (current) use of anticoagulants; Z79.899 Other long term (current) drug therapy; Z99.81 Dependence on supplemental oxygen
CPT/HCPCS: 11042; 11045; 99203; G0463

== ENCOUNTER 2020-08-03 10:00 | Outpatient (RCR) | payer MEDICARE, SELFPAY ==
[2020-07-08 00:55] VITALS: BP 119/50; PULSE 68; TEMP 36.7
[2020-07-13 10:18] VITALS: BP 139/48; PULSE 65; RESP 18; TEMP 36.1
--- NOTE | 2020-07-13 16:35 | PN.PCM_ITS ---
History of Present Illness Date of Service: 07/13/20 Chief Complaint: Non Healing bilateral lower extremity ulcer History of Wound: Mr. Lazcano is a 74-year-old with past medical history as documented above who was referred to the wound center by his primary care physician due to nonhealing bilateral lower extremity ulcers. Said to have started months ago. Initially seen by his car blocker who referred him to a primary care physician. Has been having ary wraps bilaterally which has helped with the swelling but ulcerations have persisted. He sleeps in a chair/recliner. No similar history in the past. No chills, fever or otherwise feeling of unwell. Subjective Subjective: No new concerns at this time. Ulcers said to be improving. Objective Data Objective Data Vital Signs: Vital Signs Temp Pulse Resp BP 97.0 F L 65 18 139/48 H 07/13/20 10:18 07/13/20 10:18 07/13/20 10:18 07/13/20 10:18 Oxygen Flow Rate (L/min) 2 Oxygen Delivery Method Nasal Cannula Assessment & Plan Assessment/Plan (1) Ulcer of left lower extremity with fat layer exposed: (2) Ulcer of right lower extremity with fat layer exposed: (3) Venous insufficiency of both lower extremities: (4) Oxygen dependent: PLAN: Debridement done as documented above, procedure was well-tolerated. Improving Ulcers. Continue Aquacel with Xeroform over top. Could not afford C ircAid's, double layer Tubigrip for edema management. Elevate lower extremities when seated in bed. Increase protein intake, vitamin C and zinc also recommended. His questions were answered and he was advised to call with any further questions or concerns. Follow-up in a week. This note was generated with [employer] dictation software. It may contain incorrect words, spelling, and punctuation that were not noted in checking the note before signing. Charges/Coding Procedures Integumentary 111xxx-113xx: 17845 June subq tissue 20 sq cm/< Physical Exam Const alert, oriented x3 and no apparent distress General Appearance: cooperative HEENT normocephalic and hearing grossly normal bilaterally Head and Scalp: normal to inspection and atraumatic Eyes EOMs intact bilaterally Neck full ROM and supple General: normal visual inspection Resp normal respiratory effort Effort and Inspection: able to speak in complete sentences Skin Wounds: wounds noted Neuro oriented x3, CN's II-XII intact bilaterally and moves all extremities Psych mental status grossly normal Appearance: grossly normal Debridement Note Debridement Note Post-Debridement Measurements and Additional Note: Post-Debridement Measurements/Treatment - Nurse 1 - General Ulcer Assessment Start: 07/13/20 10:17 Freq: Status: Active [facility] Activity Type Activity Date Activity User E-Sign Co-Sign Detail Recorded Client Recorded Date Recorded By Document 07/13/20 10:18 PR [id number] 07/13/20 10:28 PR 07/13/20 10:18 WC - Today's Visit Information Type of service Follow-up Visit (Physician/[employer]TER ) Arrival Mode Ambulatory Vital Signs Temperature (97.8 F-99.1 F) 97.0 F L Temperature Source Temporal Pulse Rate (60-100) 65 Pulse Location Monitor Respiratory Rate (12-18) 18 Respiratory rate source Observation Oxygen Delivery Method Nasal Cannula O2 L/MIN (L/min) 2 Blood Pressure (90/60-120/80) 139/48 H Blood Pressure Mean (mm Hg) 78 Source Monitor Position Sitting Blood Pressure Location Left Arm History Since Last Visit- (Skip if this is Patient's initial visit) Have you changed medications since your No last visit? Any new allergies or adverse reactions No Had a fall/change in ADL's that may No increase risk of falls Signs or symptoms of abuse and/or No neglect since last visit Have you been in the hospital since your No last visit? Has dressing in place as prescribed Yes Has compression in place as prescribed Yes Has offloadiing in place as prescribed N/A Left Footwear Regular Shoe Right Footwear Regular Shoe - Nurse 1 - General Ulcer Measurement Start: 07/13/20 10:17 Freq: Status: Active Protocol: Activity Type Activity Date Activity User E-Sign Co-Sign Detail Recorded Client Recorded Date Recorded By Document 07/13/20 10:18 PR [id number] 07/13/20 10:28 PR 07/13/20 10:18 Wound Center Nurse 1 #4 left velazquez cluster -Current Size (cm) - Length 0.1 -Current Size (cm) - Width 0.1 -Current Size (cm) - Depth 0.1 -Total Square Cm 0.01 -Exudate Amt Small -Exudate Type Serosanguineous -Wound Margin Flat & Intact -Granulation Amt Large (67-100%) -Granulation Quality Pale,[place],Red -Slough/Fibrin No -Texture (Milena-wound Skin Appearance) Assessed -Moisture (Milena-wound Skin Appearance) Assessed -Color (Milena-wound Skin Appearance) Assessed -Temperature (Milena-wound Skin No Abnormality Appearance) (Pt Warm) -Tenderness on Palpation (Milena-wound No Skin Appearance) -Ulcer Cleansing Rinsed/ Irrigated with Saline -Foul Odor after Cleansing No -Anesthetic Used 4% Lidocaine Solution #3 LLe Lat -Current Size (cm) - Length 0.1 -Current Size (cm) - Width 0.1 -Current Size (cm) - Depth 0.1 -Total Square Cm 0.01 -Epithelialization Large 67-100% -Wound Margin Flat & Intact -Granulation Amt Large (67-100%) -Granulation Quality Pale,[place] -Slough/Fibrin No -Texture (Milena-wound Skin Appearance) Assessed -Moisture (Milena-wound Skin Appearance) Assessed -Color (Milena-wound Skin Appearance) Assessed -Temperature (Milena-wound Skin No Abnormality Appearance) (Pt Warm) -Tenderness on Palpation (Milena-wound No Skin Appearance) -Ulcer Cleansing Rinsed/ Irrigated with Saline -Foul Odor after Cleansing No -Anesthetic Used 4% Lidocaine Solution #2 LLE MEd -Current Size (cm) - Length 0.1 -Current Size (cm) - Width 0.1 -Current Size (cm) - Depth 0.1 -Total Square Cm 0.01 -Epithelialization Large 67-100% -Exudate Amt None Present -Wound Margin Flat & Intact -Granulation Amt Large (67-100%) -Granulation Quality Pale,[place],Red -Slough/Fibrin No -Texture (Milena-wound Skin Appearance) Assessed -Moisture (Milena-wound Skin Appearance) Assessed -Color (Milena-wound Skin Appearance) Assessed -Temperature (Milena-wound Skin No Abnormality Appearance) (Pt Warm) -Tenderness on Palpation (Milena-wound No Skin Appearance) -Ulcer Cleansing Rinsed/ Irrigated with Saline -Foul Odor after Cleansing No -Anesthetic Used 4% Lidocaine Solution #1 RLE Cluster -Current Size (cm) - Length 0.1 -Current Size (cm) - Width 0.1 -Current Size (cm) - Depth 0.1 -Total Square Cm 0.01 -Epithelialization Large 67-100% -Exudate Amt None Present -Wound Margin Flat & Intact -Granulation Amt Large (67-100%) -Granulation Quality Pale,[place],Red -Texture (Milena-wound Skin Appearance) Assessed -Moisture (Milena-wound Skin Appearance) Assessed -Color (Milena-wound Skin Appearance) Assessed -Temperature (Milena-wound Skin No Abnormality Appearance) (Pt Warm) -Tenderness on Palpation (Milena-wound No Skin Appearance) -Ulcer Cleansing Rinsed/ Irrigated with Saline -Foul Odor after Cleansing No -Anesthetic Used 4% Lidocaine Solution Right Calf (cm) 37 Right Ankle (cm) 24 Left Calf (cm) 37 Left Ankle (cm) 25 WC - Nurse 2 - General Ulcer CM Notes Start: 07/13/20 10:17 Freq: Status: Active Protocol: Activity Type Activity Date Activity User E-Sign Co-Sign Detail Recorded Client Recorded Date Recorded By Document 07/13/20 10:57 MW [id number] 07/13/20 11:02 MW 07/13/20 10:57 Wound Center Nurse 2 #4 left velazquez cluster -Time 11:00 -Correct Patient Yes -Correct Side, Site, Position Yes -Correct Procedure Yes -Procedure Performed Yes -Type of Procedure Debridement -Clinical Debridement Subcutaneous -Tissue Removed Subcutaneous -Post Debridement (cm) - Length 1.0 -Post Debridement (cm) - Width 2.0 -Post Debridement (cm) - Depth 0.1 -Total Square (Post) (cm) 2.00 -Area of Debridement (cm) - Length 1.0 -Area of Debridement (cm) - Width 2.0 -Total Square (Area) (cm) 2.00 -Tunneling No -Undermining/Tunneling No -Circular Undermining No -Wound/Ulcer Outcome Not Healed -Ulcer Cleansing Rinsed/ Irrigated with Saline -Foul Odor after Cleansing No -Bioengineered Tissue No -Bleeding Controlled with Pressure -Offloading No -Treatment Response Procedure Tolerated Well -Debridement - Subq, 1st 20sq cm Yes #3 LLe Lat -Time 11:01 -Correct Patient Yes -Correct Side, Site, Position Yes -Correct Procedure Yes -Procedure Performed No -Post Debridement (cm) - Length 0 -Post Debridement (cm) - Width 0 -Post Debridement (cm) - Depth 0 -Total Square (Post) (cm) 0 -Wound/Ulcer Outcome Healed- Epithelialized #2 LLE MEd -Time 11:01 -Correct Patient Yes -Correct Side, Site, Position Yes -Correct Procedure Yes -Procedure Performed No -Post Debridement (cm) - Length 0 -Post Debridement (cm) - Width 0 -Post Debridement (cm) - Depth 0 -Total Square (Post) (cm) 0 -Wound/Ulcer Outcome Healed- Epithelialized #1 RLE Cluster -Time 11:01 -Correct Patient Yes -Correct Side, Site, Position Yes -Correct Procedure Yes -Procedure Performed Yes -Type of Procedure Debridement -Clinical Debridement Subcutaneous -Tissue Removed Subcutaneous -Post Debridement (cm) - Length 0.4 -Post Debridement (cm) - Width 0.7 -Post Debridement (cm) - Depth 0.1 -Total Square (Post) (cm) 0.28 -Area of Debridement (cm) - Length 0.4 -Area of Debridement (cm) - Width 0.7 -Total Square (Area) (cm) 0.28 -Tunneling No -Undermining/Tunneling No -Circular Undermining No -Wound/Ulcer Outcome Not Healed -Ulcer Cleansing Rinsed/ Irrigated with Saline -Foul Odor after Cleansing No -Bioengineered Tissue No -Bleeding Controlled with Pressure -Offloading No -Treatment Response Procedure Tolerated Well -Debridement - Subq, 1st 20sq cm No WC - Nurse 3 - General Ulcer D/C NN Start: 07/13/20 10:17 Freq: Status: Active Protocol: Activity Type Activity Date Activity User E-Sign Co-Sign Detail Recorded Client Recorded Date Recorded By Document 07/13/20 11:08 PR [id number] 07/13/20 11:11 PR 07/13/20 11:08 Wound Care Nurse 3 #4 left velazquez cluster -Primary Dressing Applied Aquacel Extra, Other -Other Dressing xeroform -Primary Dressing Covered/Secured with Dry Gauze & Roll Gauze, Secured with Tape -Aquacel Extra 1 WC - Visit Discharge Discharge Condition Stable Ambulatory Status Ambulatory Transportation Private Auto Medication Reconcilliation completed & No provided to patient/care provider Clinical Summary of Care Provided Yes Wound debrided: Left Velazquez Type of Debridement: Excisional debridement Anesthesia Used: 4% Lidocaine Solution Depth: Down to and including healthy tissue and in the subcutaneous layer Percentage of wound debrided: 100 Instrument Used: 5mm curette Tissue Removed: Slough and devitalized tissue Severity: Fat Layer Exposed Amount of bleeding with debridement: Mild Bleeding Controlled with: Pressure Patient tolerated procedure: Patient tolerated procedure well Additional Wound Wound debrided: Right Velazquez Type of Debridement: Excisional debridement Anesthesia Used: 4% Lidocaine Solution Depth: Down to and including healthy tissue and in the subcutaneous layer Percentage of wound debrided: 100 Instrument Used: 5mm curette Tissue Removed: Slough and devitalized tissue Severity: Fat Layer Exposed Amount of bleeding with debridement: Mild Bleeding Controlled with: Pressure Patient tolerated procedure: Patient tolerated procedure well
--- NOTE | 2020-07-14 08:37 | VDLE_ITS ---
Reason For Study: Edema RIGHT LEFT CFV is compressible, spontaneous, phasic, CFV is compressible, spontaneous, phasic, competent and demonstrates normal competent, and demonstrates normal augmentation. augmentation. FV is compressible, spontaneous, phasic, FV is compressible, spontaneous, phasic, competent and demonstrates normal competent and demonstrates normal augmentation. augmentation. POP V is compressible, spontaneous, phasic, POP V is compressible, spontaneous, phasic, competent and demonstrates normal competent and demonstrates normal augmentation. augmentation. T/P Trunk is compressible. T/P Trunk is compressible. PTV is compressible. PTV is compressible. RT PerV is compressible. LT PerV is compressible. GSV previously harvested. SFJ is competent and measures 0.56 x 0.64 cm. SFJ is competent and measures 0.67 x 0.76 cm. GSV proximal thigh measures 0.44 x 0.46 cm. SSV at junction is competent and measures GSV above knee is INCOMPETENT for greater 0.20 x 0.22 cm. than 0.5 seconds. Procedure GSV at knee measures 0.49 x 0.53 cm. This is a venous duplex using B-mode, color GSV below knee is competent. flow and spectral Doppler. SSV at junction is competent and measures Exam performed in department. 0.18 x 0.17 cm. Bilateral calf veins only visualized at prox and distal calf. Unable to visualize bilateral mid calf due to open wounds and bandages. A preliminary report was called and/or faxed to . VL/Venous Duplex US - Zackary Extrem Interpretation Summary Deep veins of the lower extremities are bilaterally patent and compressible seg mentally. There is no evidence of deep vein thrombosis on either side. Valvular competence appears in tact within the proximal deep venous systems bilaterally. The right great saphenous vein is abs ent, having been previously harvested. The left great saphenous vein appears patent and compress ible segmentally. Sapheno-femoral junctions are bilaterally competent . The left great saphenous vein appears incompetent above the knee. The left great saphenous vein appears competent bel ow the knee. Small saphenous veins are patent and competent bilaterally. Ordering Physician: Ankur Santos Referring Physician: Christa Aragon Performed By: Jaky Nichols RVT
--- NOTE | 2020-07-14 08:38 | ART_ITS ---
Reason For Study: Ulcer Procedure A bilateral lower extremity continuous wave Doppler with analog waveform analysis,segmental pressures,and ankle brachial indexes without exercise. Left Segmental Pressures Left brachial= 131mmHg. Left posterior tibial artery = 167mmHg. Left dorsalis pedis artery = 156mmHg. Left digit = 59 mmHg. The left dorsalis pedis waveforms are triphasic. The left posterior tibial artery waveforms are triphasic. Right Segmental Pressures Right brachial= 128mmHg. Right posterior tibial artery = 152mmHg. Right dorsalis pedis artery = 151mmHg. Right digit = 135 mmHg. The right dorsalis pedis waveforms are triphasic. The right posterior tibial artery waveforms are triphasic. Indices The right ankle brachial index by the dorsalis pedis is 1.15. The right ankle brachial index by the posterior tibial artery is 1.16. The right digital-brachial index is 1.03. The left ankle brachial index by the dorsalis pedis is 1.19. The left ankle brachial index by the posterior tibial artery is 1.27. The left digital-brachial index is 0.45. VL/Lower Ext Art Exam w/o Exercis Interpretation Summary Triphasic Doppler waveforms are noted at ankle level bilaterally. Pulse-volume recording waveform amplitude appears diminished at digital level on the left, but satisfactory at all other levels bilaterally. Resting ankle-brachial indices are normal bilaterally. The right d igital-brachial index is normal. The left digital-brachial index is moderately diminished. Arterial flow appears normal at ankle level bilaterally, and at digital level o n the right. There is evidence of moderate, distal, small-vessel arterial occlusive disease at digita l level on the left. Ordering Physician: Ankur Santos Referring Physician: Christa Aragon Performed By: Jaky Nichols RVT
[2020-07-27 10:17] VITALS: BP 109/37; PULSE 76; RESP 20; TEMP 36.1; O2SAT 98
--- NOTE | 2020-07-27 16:52 | PN.PCM_ITS ---
History of Present Illness Date of Service: 07/27/20 Chief Complaint: Non Healing bilateral lower extremity ulcer History of Wound: Mr. Lazcano is a 74-year-old with past medical history as documented above who was referred to the wound center by his primary care physician due to nonhealing bilateral lower extremity ulcers. Said to have started months ago. Initially seen by his editorial writer who referred him to a primary care physician. Has been having ary wraps bilaterally which has helped with the swelling but ulcerations have persisted. He sleeps in a chair/recliner. No similar history in the past. No chills, fever or otherwise feeling of unwell. Subjective Subjective Previous ulcers are healed. New right lower extremity also noted. No known precipitating factor. Feels well otherwise. Objective Data Objective Data Vital Signs: Vital Signs Temp Pulse Resp BP Pulse Ox 97.0 F L 76 20 H 109/37 L 98 07/27/20 10:17 07/27/20 10:17 07/27/20 10:17 07/27/20 10:17 07/27/20 10:17 Oxygen Flow Rate (L/min) 2 Oxygen Delivery Method Nasal Cannula Charges/Coding Procedures Integumentary [id number]: [id number] June subq tissue 20 sq cm/< Physical Exam Const alert, oriented x3 and no apparent distress General Appearance: cooperative HEENT normocephalic and hearing grossly normal bilaterally Head and Scalp: normal to inspection and atraumatic Eyes EOMs intact bilaterally Neck full ROM and supple General: normal visual inspection Resp normal respiratory effort Effort and Inspection: able to speak in complete sentences Skin Wounds: wounds noted Neuro oriented x3, CN's II-XII intact bilaterally and moves all extremities Psych mental status grossly normal Appearance: grossly normal Debridement Note Debridement Note Post-Debridement Measurements and Additional Note: Post-Debridement Measurements/Treatment - Nurse 1 - General Ulcer Assessment Start: 07/13/20 10:17 Freq: Status: Active Protocol: JACINTO Activity Type Activity Date Activity User E-Sign Co-Sign Detail Recorded Client Recorded Date Recorded By Document 07/13/20 10:18 WV [id number] 07/13/20 10:28 WV Document 07/27/20 10:17 WV [id number] 07/27/20 10:24 MT 07/13/20 07/27/20 10:18 10:17 - Today's Visit Information Type of service Follow-up Visit Follow-up Visit (Physician/DISTRIBUTED GENERATION PROJECT MANAGER (Physician/DISTRIBUTED GENERATION PROJECT MANAGER ) ) Arrival Mode Ambulatory Ambulatory Patient Identification Verified (Name & Yes ) Vital Signs Temperature (97.8 F-99.1 F) 97.0 F L 97.0 F L Temperature Source Temporal Temporal Pulse Rate (60-100) 65 76 Pulse Location Monitor Monitor Respiratory Rate (12-18) 18 20 H Respiratory rate source Observation Observation Pulse Oximetry 98 Oxygen Delivery Method Nasal Cannula Nasal Cannula O2 L/MIN (L/min) 2 2 Blood Pressure (90/60-120/80) 139/48 H 109/37 L Blood Pressure Mean (mm Hg) 78 61 Source Monitor Monitor Position Sitting Sitting Blood Pressure Location Left Arm Right Arm History Since Last Visit- (Skip if this is Patient's initial visit) Have you changed medications since your No last visit? Any new allergies or adverse reactions No Had a fall/change in ADL's that may No increase risk of falls Signs or symptoms of abuse and/or No neglect since last visit Have you been in the hospital since your No last visit? Has dressing in place as prescribed Yes Yes Has compression in place as prescribed Yes Yes Has offloadiing in place as prescribed N/A N/A Experienced any changes in pain level or No management Left Footwear Regular Shoe Regular Shoe Right Footwear Regular Shoe Regular Shoe - Nurse 1 - General Ulcer Measurement Start: 07/13/20 10:17 Freq: Status: Active Protocol: Activity Type Activity Date Activity User E-Sign Co-Sign Detail Recorded Client Recorded Date Recorded By Document 07/13/20 10:18 WV [id number] 07/13/20 10:28 WV Document 07/27/20 10:17 WV [id number] 07/27/20 10:24 WV 07/13/20 07/27/20 10:18 10:17 Wound Center Nurse 1 #4 left velazquez cluster -Current Size (cm) - Length 0.1 0.1 -Current Size (cm) - Width 0.1 0.1 -Current Size (cm) - Depth 0.1 0.1 -Total Square Cm 0.01 0.01 -Exudate Amt Small None Present -Exudate Type Serosanguineous -Wound Margin Flat & Intact Flat & Intact -Granulation Amt Large (67-100%) None Present (0 %) -Granulation Quality Pale,[place],Red -Slough/Fibrin No No -Texture (Milena-wound Skin Appearance) Assessed Assessed -Moisture (Milena-wound Skin Appearance) Assessed Assessed -Color (Milena-wound Skin Appearance) Assessed Assessed -Temperature (Milena-wound Skin No Abnormality No Abnormality Appearance) (Pt Warm) (Pt Warm) -Tenderness on Palpation (Milena-wound No No Skin Appearance) -Ulcer Cleansing Rinsed/ Rinsed/ Irrigated with Irrigated with Saline Saline -Foul Odor after Cleansing No No -Anesthetic Used 4% Lidocaine 4% Lidocaine Solution Solution #3 LLe Lat -Current Size (cm) - Length 0.1 -Current Size (cm) - Width 0.1 -Current Size (cm) - Depth 0.1 -Total Square Cm 0.01 -Epithelialization Large 67-100% -Wound Margin Flat & Intact -Granulation Amt Large (67-100%) -Granulation Quality Pale,[place] -Slough/Fibrin No -Texture (Mliena-wound Skin Appearance) Assessed -Moisture (Milena-wound Skin Appearance) Assessed -Color (Milena-wound Skin Appearance) Assessed -Temperature (Milena-wound Skin No Abnormality Appearance) (Pt Warm) -Tenderness on Palpation (Milena-wound No Skin Appearance) -Ulcer Cleansing Rinsed/ Irrigated with Saline -Foul Odor after Cleansing No -Anesthetic Used 4% Lidocaine Solution #2 LLE MEd -Current Size (cm) - Length 0.1 -Current Size (cm) - Width 0.1 -Current Size (cm) - Depth 0.1 -Total Square Cm 0.01 -Epithelialization Large 67-100% -Exudate Amt None Present -Wound Margin Flat & Intact -Granulation Amt Large (67-100%) -Granulation Quality Pale,[place],Red -Slough/Fibrin No -Texture (Milena-wound Skin Appearance) Assessed -Moisture (Milena-wound Skin Appearance) Assessed -Color (Milena-wound Skin Appearance) Assessed -Temperature (Milena-wound Skin No Abnormality Appearance) (Pt Warm) -Tenderness on Palpation (Milena-wound No Skin Appearance) -Ulcer Cleansing Rinsed/ Irrigated with Saline -Foul Odor after Cleansing No -Anesthetic Used 4% Lidocaine Solution #1 RLE Cluster -Current Size (cm) - Length 0.1 0.1 -Current Size (cm) - Width 0.1 0.1 -Current Size (cm) - Depth 0.1 0.1 -Total Square Cm 0.01 0.01 -Epithelialization Large 67-100% -Exudate Amt None Present None Present -Wound Margin Flat & Intact Flat & Intact -Granulation Amt Large (67-100%) None Present (0 %) -Granulation Quality Pale,[place],Red -Slough/Fibrin No -Texture (Milena-wound Skin Appearance) Assessed Assessed -Moisture (Milena-wound Skin Appearance) Assessed Assessed -Color (Milena-wound Skin Appearance) Assessed Assessed -Temperature (Milena-wound Skin No Abnormality Appearance) (Pt Warm) -Tenderness on Palpation (Milena-wound No No Skin Appearance) -Ulcer Cleansing Rinsed/ Rinsed/ Irrigated with Irrigated with Saline Saline -Foul Odor after Cleansing No No -Anesthetic Used 4% Lidocaine 4% Lidocaine Solution Solution Right Calf (cm) 37 35 Right Ankle (cm) 24 22.5 Left Calf (cm) 37 36 Left Ankle (cm) 25 22 WC - Nurse 2 - General Ulcer CM Notes Start: 07/13/20 10:17 Freq: Status: Active Protocol: Activity Type Activity Date Activity User E-Sign Co-Sign Detail Recorded Client Recorded Date Recorded By Document 07/13/20 10:57 MW [id number] 07/13/20 11:02 MW Document 07/27/20 10:31 MW [id number] 07/27/20 10:39 MW 07/13/20 07/27/20 10:57 10:31 Wound Center Nurse 2 #5 right lateral upper leg -Time 10:38 -Correct Patient Yes -Correct Side, Site, Position Yes -Correct Procedure Yes -Procedure Performed Yes -Type of Procedure Debridement -Clinical Debridement Subcutaneous -Tissue Removed Subcutaneous -Post Debridement (cm) - Length 1.6 -Post Debridement (cm) - Width 0.8 -Post Debridement (cm) - Depth 0.1 -Total Square (Post) (cm) 1.28 -Area of Debridement (cm) - Length 1.6 -Area of Debridement (cm) - Width 0.8 -Total Square (Area) (cm) 1.28 -Tunneling No -Undermining/Tunneling No -Circular Undermining No -Wound/Ulcer Outcome Not Healed -Ulcer Cleansing Rinsed/ Irrigated with Saline -Foul Odor after Cleansing No -Bioengineered Tissue No -Bleeding Controlled with Pressure -Offloading No -Treatment Response Procedure Tolerated Well -Debridement - Subq, 1st 20sq cm Yes #4 left velazquez cluster -Time 11:00 10:33 -Correct Patient Yes Yes -Correct Side, Site, Position Yes Yes -Correct Procedure Yes Yes -Procedure Performed Yes No -Type of Procedure Debridement -Clinical Debridement Subcutaneous -Tissue Removed Subcutaneous -Post Debridement (cm) - Length 1.0 0 -Post Debridement (cm) - Width 2.0 0 -Post Debridement (cm) - Depth 0.1 0 -Total Square (Post) (cm) 2.00 0 -Area of Debridement (cm) - Length 1.0 -Area of Debridement (cm) - Width 2.0 -Total Square (Area) (cm) 2.00 -Tunneling No No -Undermining/Tunneling No No -Circular Undermining No No -Wound/Ulcer Outcome Not Healed Healed- Epithelialized -Ulcer Cleansing Rinsed/ Not Cleansed Irrigated with Saline -Foul Odor after Cleansing No No -Bioengineered Tissue No No -Bleeding Controlled with Pressure NA -Offloading No -Treatment Response Procedure Tolerated Well -Debridement - Subq, 1st 20sq cm Yes #3 LLe Lat -Time 11:01 -Correct Patient Yes -Correct Side, Site, Position Yes -Correct Procedure Yes -Procedure Performed No -Post Debridement (cm) - Length 0 -Post Debridement (cm) - Width 0 -Post Debridement (cm) - Depth 0 -Total Square (Post) (cm) 0 -Wound/Ulcer Outcome Healed- Epithelialized #2 LLE MEd -Time 11:01 -Correct Patient Yes -Correct Side, Site, Position Yes -Correct Procedure Yes -Procedure Performed No -Post Debridement (cm) - Length 0 -Post Debridement (cm) - Width 0 -Post Debridement (cm) - Depth 0 -Total Square (Post) (cm) 0 -Wound/Ulcer Outcome Healed- Epithelialized #1 RLE Cluster -Time 11:01 10:37 -Correct Patient Yes Yes -Correct Side, Site, Position Yes Yes -Correct Procedure Yes Yes -Procedure Performed Yes No -Type of Procedure Debridement -Clinical Debridement Subcutaneous -Tissue Removed Subcutaneous -Post Debridement (cm) - Length 0.4 0 -Post Debridement (cm) - Width 0.7 0 -Post Debridement (cm) - Depth 0.1 0 -Total Square (Post) (cm) 0.28 0 -Area of Debridement (cm) - Length 0.4 -Area of Debridement (cm) - Width 0.7 -Total Square (Area) (cm) 0.28 -Tunneling No -Undermining/Tunneling No -Circular Undermining No -Wound/Ulcer Outcome Not Healed Healed- Epithelialized -Ulcer Cleansing Rinsed/ Irrigated with Saline -Foul Odor after Cleansing No -Bioengineered Tissue No -Bleeding Controlled with Pressure -Offloading No -Treatment Response Procedure Tolerated Well -Debridement - Subq, 1st 20sq cm No Pain Scale: 0-10 Numeric Is Patient Pain Free? Yes - Nurse 3 - General Ulcer D/C NN Start: 07/13/20 10:17 Freq: Status: Active Protocol: Activity Type Activity Date Activity User E-Sign Co-Sign Detail Recorded Client Recorded Date Recorded By Document 07/13/20 11:08 WV [id number] 07/13/20 11:11 WV Document 07/27/20 10:40 MW [id number] 07/27/20 10:40 MW 07/13/20 07/27/20 11:08 10:40 Wound Care Nurse 3 #5 right lateral upper leg -Ulcer Cleansing Rinsed/ Irrigated with Saline -Foul Odor after Cleansing No -Negative Pressure Wound Therapy N/A -Primary Dressing Applied Aquacel Extra -Primary Dressing Covered/Secured with Dry Gauze & Roll Gauze, Secured with Tape -Aquacel Extra 1 #4 left velazquez cluster -Primary Dressing Applied Aquacel Extra, Other -Other Dressing xeroform -Primary Dressing Covered/Secured with Dry Gauze & Roll Gauze, Secured with Tape -Aquacel Extra 1 Treatment Response Procedure Tolerated Well Teaching: Wound Center Dressing Your Wound -Person Taught Patient -Teaching Method Discussion -Response to teaching Verbalize understanding WC - Visit Discharge Discharge Condition Stable Stable Ambulatory Status Ambulatory Ambulatory Transportation Private Auto Private Auto Accompanied by self Medication Reconcilliation completed & No No provided to patient/care provider Clinical Summary of Care Provided Yes Yes Wound debrided: Right lower extremity Type of Debridement: Excisional debridement Anesthesia Used: 4% Lidocaine Solution Depth: Down to and including healthy tissue and in the subcutaneous layer Percentage of wound debrided: 100 Instrument Used: 5mm curette Tissue Removed: Slough and devitalized tissue Severity: Fat Layer Exposed Amount of bleeding with debridement: Mild Bleeding Controlled with: Pressure Patient tolerated procedure: Patient tolerated procedure well Assessment/Plan Assessment/Plan (1) Ulcer of left lower extremity with fat layer exposed: CODE(S): Code(s): L97.922 - Non-pressure chronic ulcer of unspecified part of left lower leg with fat layer exposed (2) Ulcer of right lower extremity with fat layer exposed: CODE(S): Code(s): L97.912 - Non-pressure chronic ulcer of unspecified part of right lower leg with fat layer exposed (3) Venous insufficiency of both lower extremities: CODE(S): Code(s): I87.2 - Venous insufficiency (chronic) (peripheral) PLAN: Chronic bilateral lower extremity ulcers are essentially healed. New right lower extremity ulcer noted. No known precipitating factor. Debridement done as documented above, procedure was well-tolerated. Aquacel with Adaptic over top. Change every other day by home health. Elevate lower extremity when sitting up and in bed. Optimal protein intake. Exercise as tolerated. His questions were answered and he was advised to call with any further questions or concerns. Venous and vascular studies reviewed. Follow-up in a week. This note was generated with [employer] dictation software. It may contain incorrect words, spelling, and punctuation that were not noted in checking the note before signing.
[2020-08-03 10:11] VITALS: BP 126/52; PULSE 66; RESP 18; TEMP 36.3
--- NOTE | 2020-08-03 11:58 | PN.PCM_ITS ---
History of Present Illness Date of Service: 08/03/20 Chief Complaint: Non Healing bilateral lower extremity ulcer History of Wound: Mr. Lazcano is a 74-year-old with past medical history as documented above who was referred to the wound center by his primary care physician due to nonhealing bilateral lower extremity ulcers. Said to have started months ago. Initially seen by his director semiconductor who referred him to a primary care physician. Has been having ary wraps bilaterally which has helped with the swelling but ulcerations have persisted. He sleeps in a chair/recliner. No similar history in the past. No chills, fever or otherwise feeling of unwell. Subjective Subjective Double layer Tubi not offering good compression. Improving ulcer. Objective Data Objective Data Vital Signs: Vital Signs Temp Pulse Resp BP Pulse Ox 97.3 F L 66 18 126/52 H 98 08/03/20 10:11 08/03/20 10:11 08/03/20 10:11 08/03/20 10:11 07/27/20 10:17 Oxygen Flow Rate (L/min) 2 Oxygen Delivery Method Nasal Cannula Charges/Coding Procedures Integumentary 111xxx-113xx: 21737 June subq tissue 20 sq cm/< Physical Exam Const alert, oriented x3 and no apparent distress General Appearance: cooperative HEENT normocephalic and hearing grossly normal bilaterally Head and Scalp: normal to inspection and atraumatic Eyes EOMs intact bilaterally Neck full ROM and supple General: normal visual inspection Resp normal respiratory effort Effort and Inspection: able to speak in complete sentences Skin Wounds: wounds noted Neuro oriented x3, CN's II-XII intact bilaterally and moves all extremities Psych mental status grossly normal Appearance: grossly normal Debridement Note Debridement Note Post-Debridement Measurements and Additional Note: Post-Debridement Measurements/Treatment WC - Nurse 1 - General Ulcer Assessment Start: 07/13/20 10:17 Freq: Status: Active Protocol: JACINTO Activity Type Activity Date Activity User E-Sign Co-Sign Detail Recorded Client Recorded Date Recorded By Document 07/13/20 10:18 SC [id number] 07/13/20 10:28 MT Document 07/27/20 10:17 MT [id number] 07/27/20 10:24 MT Document 08/03/20 10:11 RB [id number] 08/03/20 10:26 RB 07/13/20 07/27/20 08/03/20 10:18 10:17 10:11 - Today's Visit Information Type of service Follow-up Visit Follow-up Visit Follow-up Visit (Physician/BREAKFAST AND ROOM ATTENDANT (Physician/BREAKFAST AND ROOM ATTENDANT (Physician/BREAKFAST AND ROOM ATTENDANT ) ) ) Arrival Mode Ambulatory Ambulatory Ambulatory Transfer Assistance None Patient Identification Verified (Name & Yes Yes ) Patient Requires Transmission-Based No Precautions Vital Signs Temperature (97.8 F-99.1 F) 97.0 F L 97.0 F L 97.3 F L Temperature Source Temporal Temporal Temporal Pulse Rate (60-100) 65 76 66 Pulse Location Monitor Monitor Monitor Respiratory Rate (12-18) 18 20 H 18 Respiratory rate source Observation Observation Observation Pulse Oximetry 98 Oxygen Delivery Method Nasal Cannula Nasal Cannula O2 L/MIN (L/min) 2 2 2 Blood Pressure (90/60-120/80) 139/48 H 109/37 L 126/52 H Blood Pressure Mean (mm Hg) 78 61 76 Source Monitor Monitor Monitor Position Sitting Sitting Sitting Blood Pressure Location Left Arm Right Arm Left Arm History Since Last Visit- (Skip if this is Patient's initial visit) Have you changed medications since your No No last visit? Any new allergies or adverse reactions No No Had a fall/change in ADL's that may No No increase risk of falls Signs or symptoms of abuse and/or No No neglect since last visit Have you been in the hospital since your No No last visit? Has dressing in place as prescribed Yes Yes Yes Has compression in place as prescribed Yes Yes Yes Has offloadiing in place as prescribed N/A N/A No Experienced any changes in pain level or No No management Left Footwear Regular Shoe Regular Shoe Regular Shoe Right Footwear Regular Shoe Regular Shoe Regular Shoe Pain Scale: 0-10 Numeric Is Patient Pain Free? Yes - Nurse 1 - General Ulcer Measurement Start: 07/13/20 10:17 Freq: Status: Active Protocol: Activity Type Activity Date Activity User E-Sign Co-Sign Detail Recorded Client Recorded Date Recorded By Document 07/13/20 10:18 SC [id number] 07/13/20 10:28 MT Document 07/27/20 10:17 MT [id number] 07/27/20 10:24 MT Document 08/03/20 10:11 RB [id number] 08/03/20 10:26 RB 07/13/20 07/27/20 08/03/20 10:18 10:17 10:11 Wound Center Nurse 1 #5 right lateral upper leg -Combined with other wound No -Current Size (cm) - Length 1 -Current Size (cm) - Width 0.6 -Current Size (cm) - Depth 0.1 -Total Square Cm 0.6 -Tunneling No -Undermining/Tunneling No -Circular Undermining No -Exudate Amt Small -Exudate Type Serosanguineous -Wound Margin Flat & Intact -Granulation Amt Medium (34-66%) -Granulation Quality [place] -Slough/Fibrin Yes -Necrosis Amt Medium (34-66%) -Necrotic Tissue Type Adherent Slough -Structure Exposed N/A -Texture (Milena-wound Skin Appearance) Scarring -Moisture (Milena-wound Skin Appearance) Assessed -Color (Milena-wound Skin Appearance) Assessed -Temperature (Milena-wound Skin No Abnormality Appearance) (Pt Warm) -Tenderness on Palpation (Milena-wound No Skin Appearance) -Ulcer Cleansing Wound Cleanser -Foul Odor after Cleansing No -Anesthetic Used 4% Lidocaine Solution #4 left velazquez cluster -Current Size (cm) - Length 0.1 0.1 -Current Size (cm) - Width 0.1 0.1 -Current Size (cm) - Depth 0.1 0.1 -Total Square Cm 0.01 0.01 -Exudate Amt Small None Present -Exudate Type Serosanguineous -Wound Margin Flat & Intact Flat & Intact -Granulation Amt Large (67-100%) None Present (0 %) -Granulation Quality Pale,[place],Red -Slough/Fibrin No No -Texture (Milena-wound Skin Appearance) Assessed Assessed -Moisture (Milena-wound Skin Appearance) Assessed Assessed -Color (Milena-wound Skin Appearance) Assessed Assessed -Temperature (Milena-wound Skin No Abnormality No Abnormality Appearance) (Pt Warm) (Pt Warm) -Tenderness on Palpation (Milena-wound No No Skin Appearance) -Ulcer Cleansing Rinsed/ Rinsed/ Irrigated with Irrigated with Saline Saline -Foul Odor after Cleansing No No -Anesthetic Used 4% Lidocaine 4% Lidocaine Solution Solution #3 LLe Lat -Current Size (cm) - Length 0.1 -Current Size (cm) - Width 0.1 -Current Size (cm) - Depth 0.1 -Total Square Cm 0.01 -Epithelialization Large 67-100% -Wound Margin Flat & Intact -Granulation Amt Large (67-100%) -Granulation Quality Pale,[place] -Slough/Fibrin No -Texture (Milena-wound Skin Appearance) Assessed -Moisture (Milena-wound Skin Appearance) Assessed -Color (Milena-wound Skin Appearance) Assessed -Temperature (Milena-wound Skin No Abnormality Appearance) (Pt Warm) -Tenderness on Palpation (Milena-wound No Skin Appearance) -Ulcer Cleansing Rinsed/ Irrigated with Saline -Foul Odor after Cleansing No -Anesthetic Used 4% Lidocaine Solution #2 LLE MEd -Current Size (cm) - Length 0.1 -Current Size (cm) - Width 0.1 -Current Size (cm) - Depth 0.1 -Total Square Cm 0.01 -Epithelialization Large 67-100% -Exudate Amt None Present -Wound Margin Flat & Intact -Granulation Amt Large (67-100%) -Granulation Quality Pale,[place],Red -Slough/Fibrin No -Texture (Milena-wound Skin Appearance) Assessed -Moisture (Milena-wound Skin Appearance) Assessed -Color (Milena-wound Skin Appearance) Assessed -Temperature (Milena-wound Skin No Abnormality Appearance) (Pt Warm) -Tenderness on Palpation (Milena-wound No Skin Appearance) -Ulcer Cleansing Rinsed/ Irrigated with Saline -Foul Odor after Cleansing No -Anesthetic Used 4% Lidocaine Solution #1 RLE Cluster -Current Size (cm) - Length 0.1 0.1 -Current Size (cm) - Width 0.1 0.1 -Current Size (cm) - Depth 0.1 0.1 -Total Square Cm 0.01 0.01 -Epithelialization Large 67-100% -Exudate Amt None Present None Present -Wound Margin Flat & Intact Flat & Intact -Granulation Amt Large (67-100%) None Present (0 %) -Granulation Quality Pale,[place],Red -Slough/Fibrin No -Texture (Milena-wound Skin Appearance) Assessed Assessed -Moisture (Milena-wound Skin Appearance) Assessed Assessed -Color (Milena-wound Skin Appearance) Assessed Assessed -Temperature (Milena-wound Skin No Abnormality Appearance) (Pt Warm) -Tenderness on Palpation (Milena-wound No No Skin Appearance) -Ulcer Cleansing Rinsed/ Rinsed/ Irrigated with Irrigated with Saline Saline -Foul Odor after Cleansing No No -Anesthetic Used 4% Lidocaine 4% Lidocaine Solution Solution Lower Limb Edema Present Yes Right Calf (cm) 37 35 38.2 Right Ankle (cm) 24 22.5 24.5 Left Calf (cm) 37 36 37.5 Left Ankle (cm) 25 22 24.5 WC - Nurse 2 - General Ulcer CM Notes Start: 07/13/20 10:17 Freq: Status: Active Protocol: Activity Type Activity Date Activity User E-Sign Co-Sign Detail Recorded Client Recorded Date Recorded By Document 07/13/20 10:57 MW [id number] 07/13/20 11:02 MW Document 07/27/20 10:31 MW [id number] 07/27/20 10:39 MW Document 08/03/20 10:40 MW [id number] 08/03/20 10:42 MW 07/13/20 07/27/20 08/03/20 10:57 10:31 10:40 Wound Center Nurse 2 #5 right lateral upper leg -Time 10:38 10:40 -Correct Patient Yes Yes -Correct Side, Site, Position Yes Yes -Correct Procedure Yes Yes -Procedure Performed Yes Yes -Type of Procedure Debridement Debridement -Clinical Debridement Subcutaneous Subcutaneous -Tissue Removed Subcutaneous Subcutaneous -Post Debridement (cm) - Length 1.6 0.7 -Post Debridement (cm) - Width 0.8 0.5 -Post Debridement (cm) - Depth 0.1 0.1 -Total Square (Post) (cm) 1.28 0.35 -Area of Debridement (cm) - Length 1.6 0.7 -Area of Debridement (cm) - Width 0.8 0.5 -Total Square (Area) (cm) 1.28 0.35 -Tunneling No No -Undermining/Tunneling No No -Circular Undermining No No -Wound/Ulcer Outcome Not Healed Not Healed -Ulcer Cleansing Rinsed/ Rinsed/ Irrigated with Irrigated with Saline Saline -Foul Odor after Cleansing No No -Bioengineered Tissue No No -Bleeding Controlled with Pressure Pressure -Offloading No No -Treatment Response Procedure Procedure Tolerated Well Tolerated Well -Debridement - Subq, 1st 20sq cm Yes Yes #4 left velazquez cluster -Time 11:00 10:33 -Correct Patient Yes Yes -Correct Side, Site, Position Yes Yes -Correct Procedure Yes Yes -Procedure Performed Yes No -Type of Procedure Debridement -Clinical Debridement Subcutaneous -Tissue Removed Subcutaneous -Post Debridement (cm) - Length 1.0 0 -Post Debridement (cm) - Width 2.0 0 -Post Debridement (cm) - Depth 0.1 0 -Total Square (Post) (cm) 2.00 0 -Area of Debridement (cm) - Length 1.0 -Area of Debridement (cm) - Width 2.0 -Total Square (Area) (cm) 2.00 -Tunneling No No -Undermining/Tunneling No No -Circular Undermining No No -Wound/Ulcer Outcome Not Healed Healed- Epithelialized -Ulcer Cleansing Rinsed/ Not Cleansed Irrigated with Saline -Foul Odor after Cleansing No No -Bioengineered Tissue No No -Bleeding Controlled with Pressure NA -Offloading No -Treatment Response Procedure Tolerated Well -Debridement - Subq, 1st 20sq cm Yes #3 LLe Lat -Time 11:01 -Correct Patient Yes -Correct Side, Site, Position Yes -Correct Procedure Yes -Procedure Performed No -Post Debridement (cm) - Length 0 -Post Debridement (cm) - Width 0 -Post Debridement (cm) - Depth 0 -Total Square (Post) (cm) 0 -Wound/Ulcer Outcome Healed- Epithelialized #2 LLE MEd -Time 11:01 -Correct Patient Yes -Correct Side, Site, Position Yes -Correct Procedure Yes -Procedure Performed No -Post Debridement (cm) - Length 0 -Post Debridement (cm) - Width 0 -Post Debridement (cm) - Depth 0 -Total Square (Post) (cm) 0 -Wound/Ulcer Outcome Healed- Epithelialized #1 RLE Cluster -Time 11:01 10:37 -Correct Patient Yes Yes -Correct Side, Site, Position Yes Yes -Correct Procedure Yes Yes -Procedure Performed Yes No -Type of Procedure Debridement -Clinical Debridement Subcutaneous -Tissue Removed Subcutaneous -Post Debridement (cm) - Length 0.4 0 -Post Debridement (cm) - Width 0.7 0 -Post Debridement (cm) - Depth 0.1 0 -Total Square (Post) (cm) 0.28 0 -Area of Debridement (cm) - Length 0.4 -Area of Debridement (cm) - Width 0.7 -Total Square (Area) (cm) 0.28 -Tunneling No -Undermining/Tunneling No -Circular Undermining No -Wound/Ulcer Outcome Not Healed Healed- Epithelialized -Ulcer Cleansing Rinsed/ Irrigated with Saline -Foul Odor after Cleansing No -Bioengineered Tissue No -Bleeding Controlled with Pressure -Offloading No -Treatment Response Procedure Tolerated Well -Debridement - Subq, 1st 20sq cm No Pain Scale: 0-10 Numeric Is Patient Pain Free? Yes Yes - Nurse 3 - General Ulcer D/C NN Start: 07/13/20 10:17 Freq: Status: Active Protocol: Activity Type Activity Date Activity User E-Sign Co-Sign Detail Recorded Client Recorded Date Recorded By Document 07/13/20 11:08 MT [id number] 07/13/20 11:11 MT Document 07/27/20 10:40 MW [id number] 07/27/20 10:40 MW Document 08/03/20 11:08 RB [id number] 08/03/20 11:09 RB 07/13/20 07/27/20 08/03/20 11:08 10:40 11:08 Wound Care Nurse 3 #5 right lateral upper leg -Ulcer Cleansing Rinsed/ Rinsed/ Irrigated with Irrigated with Saline Saline -Foul Odor after Cleansing No -Negative Pressure Wound Therapy N/A -Primary Dressing Applied Aquacel Extra Aquacel Extra -Other Dressing abd -Primary Dressing Covered/Secured with Dry Gauze & Dry Gauze, Roll Gauze, Secured with Secured with Tape Tape -Aquacel Extra 1 1 #4 left velazquez cluster -Primary Dressing Applied Aquacel Extra, Other -Other Dressing xeroform -Primary Dressing Covered/Secured with Dry Gauze & Roll Gauze, Secured with Tape -Aquacel Extra 1 bilateral -Multi-Layered Wrap Application Multi-Layer Comp - Bilat ($ ) Treatment Response Procedure Procedure Tolerated Well Tolerated Well Pain Scale: 0-10 Numeric Is Patient Pain Free? Yes Teaching: Wound Center Dressing Your Wound -Person Taught Patient -Teaching Method Discussion -Response to teaching Verbalize understanding WC - Visit Discharge Discharge Condition Stable Stable Stable Ambulatory Status Ambulatory Ambulatory Ambulatory Transportation Private Auto Private Auto Private Auto Accompanied by self Medication Reconcilliation completed & No No No provided to patient/care provider Clinical Summary of Care Provided Yes Yes Yes Wound debrided: Right lower extremity Type of Debridement: Excisional debridement Anesthesia Used: 4% Lidocaine Solution Depth: Down to and including healthy tissue Percentage of wound debrided: 100 Instrument Used: 3mm curette Tissue Removed: Slough and devitalized tissue Severity: Fat Layer Exposed Amount of bleeding with debridement: Mild Bleeding Controlled with: Pressure Patient tolerated procedure: Patient tolerated procedure well Assessment/Plan Assessment/Plan (1) Ulcer of left lower extremity with fat layer exposed: CODE(S): L97.922 - Non-pressure chronic ulcer of unspecified part of left lower leg with fat layer exposed (2) Ulcer of right lower extremity with fat layer exposed: CODE(S): L97.912 - Non-pressure chronic ulcer of unspecified part of right lower leg with fat layer exposed (3) Venous insufficiency of both lower extremities: CODE(S): I87.2 - Venous insufficiency (chronic) (peripheral) PLAN: Improving ulcer however, edema is not well controlled. Debridement done as documented above, procedure was well-tolerated. Aquacel with Adaptic over top. 3M wraps for edema management. Change on Friday by HH. Elevate lower extremity when sitting up and in bed. Optimal protein intake. Exercise as tolerated. His questions were answered and he was advised to call with any further questions or concerns. Venous and vascular studies reviewed. Follow-up in a week. This note was generated with [email or web address] dictation software. It may contain incorrect words, spelling, and punctuation that were not noted in checking the note before signing.
== END 2020-08-07 23:59 ==
LOC: WC 10:00
PROVIDERS: PCP Family Medicine; Referring Provider Family Medicine; Visit Provider Internal Medicine
DX: I87.2 Venous insufficiency (chronic) (peripheral) (principal); L97.812 Non-pressure chronic ulcer of other part of right lower leg with fat layer exposed; L97.822 Non-pressure chronic ulcer of other part of left lower leg with fat layer exposed; I73.9 Peripheral vascular disease, unspecified; R60.0 Localized edema; Z79.82 Long term (current) use of aspirin; Z79.01 Long term (current) use of anticoagulants; Z79.899 Other long term (current) drug therapy; Z99.81 Dependence on supplemental oxygen
CPT/HCPCS: 11042; 29581; 93923; 93970

== ENCOUNTER 2020-08-31 09:45 | Outpatient (RCR) | payer MEDICARE, SELFPAY ==
[2020-08-08 00:35] VITALS: BP 126/52; PULSE 66; RESP 18; TEMP 36.3; O2SAT 98
[2020-08-10 09:54] VITALS: BP 128/46; PULSE 68; RESP 18; TEMP 36.4
--- NOTE | 2020-08-10 17:30 | PCM.WC.PN ---
History of Present Illness Date of Service: 08/10/20 Chief Complaint: Non Healing bilateral lower extremity ulcer History of Wound: Mr. Lazcano is a 74-year-old with past medical history as documented above who was referred to the wound center by his primary care physician due to nonhealing bilateral lower extremity ulcers. Said to have started months ago. 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 Has been having ary wraps bilaterally which has helped with the swelling but ulcerations have persisted. He sleeps in a chair/recliner. No similar history in the past. No chills, fever or otherwise feeling of unwell. Subjective Subjective Some worsening noted of his right lower extremity ulcer. 3M wraps not applied properly. Objective Data Objective Data Vital Signs: Vital Signs Temp Pulse Resp BP Pulse Ox 97.6 F L 68 18 128/46 H 98 08/10/20 09:54 08/10/20 09:54 08/10/20 09:54 08/10/20 09:54 08/08/20 00:35 Oxygen Flow Rate (L/min) 2 Oxygen Delivery Method Nasal Cannula Charges/Coding Procedures Integumentary 111xxx-113xx: 07919 June subq tissue 20 sq cm/< Physical Exam Const alert, oriented x3 and no apparent distress General Appearance: cooperative HEENT normocephalic and hearing grossly normal bilaterally Head and Scalp: normal to inspection and atraumatic Eyes EOMs intact bilaterally Neck full ROM and supple General: normal visual inspection Resp normal respiratory effort Effort and Inspection: able to speak in complete sentences Skin Wounds: wounds noted Neuro oriented x3, CN's II-XII intact bilaterally and moves all extremities Psych mental status grossly normal Appearance: grossly normal Debridement Note Debridement Note Post-Debridement Measurements and Additional Note: Post-Debridement Measurements/Treatment - Nurse 1 - General Ulcer Assessment Start: 08/10/20 09:54 Freq: Status: Active Protocol: JACINTO Activity Type Activity Date Activity User E-Sign Co-Sign Detail Recorded Client Recorded Date Recorded By Document 08/10/20 09:54 DELILAH [id number] 08/10/20 10:07 DELILAH 08/10/20 09:54 - Today's Visit Information Type of service Follow-up Visit (Physician/CONSTRUCTION QUALITY CONTROL MANAGER ) Arrival Mode Ambulatory Transfer Assistance None Patient Identification Verified (Name & Yes ) Patient Requires Transmission-Based No Precautions Safety Precautions NA Vital Signs Temperature (97.8 F-99.1 F) 97.6 F L Temperature Source Temporal Pulse Rate (60-100) 68 Respiratory Rate (12-18) 18 Oxygen Delivery Method Nasal Cannula Blood Pressure (90/60-120/80) 128/46 H Blood Pressure Mean (mm Hg) 73 History Since Last Visit- (Skip if this is Patient's initial visit) Have you changed medications since your No last visit? Any new allergies or adverse reactions No Had a fall/change in ADL's that may No increase risk of falls Signs or symptoms of abuse and/or No neglect since last visit Have you been in the hospital since your No last visit? Has dressing in place as prescribed Yes Has compression in place as prescribed Yes Has offloadiing in place as prescribed N/A Experienced any changes in pain level or No management Pain Scale: 0-10 Numeric Is Patient Pain Free? Yes JESSEE - Nurse 1 - General Ulcer Measurement Start: 08/10/20 09:54 Freq: Status: Active Protocol: Activity Type Activity Date Activity User E-Sign Co-Sign Detail Recorded Client Recorded Date Recorded By Document 08/10/20 09:54 DELILAH [id number] 08/10/20 10:07 PL 08/10/20 09:54 Wound Center Nurse 1 #5 right lateral upper leg -Combined with other wound No -Current Size (cm) - Length 1.3 -Current Size (cm) - Width 1.5 -Current Size (cm) - Depth 0.1 -Total Square Cm 1.95 -Photo Taken No -Epithelialization None Present -Tunneling No -Undermining/Tunneling No -Circular Undermining No -Exudate Amt Medium -Exudate Type Serosanguineous -Wound Margin Indistinct, Non -Visible -Granulation Amt Large (67-100%) -Granulation Quality [place] -Slough/Fibrin No -Necrosis Amt Small (1-33%) -Necrotic Tissue Type Adherent Slough -Texture (Milena-wound Skin Appearance) No Abnormality -Moisture (Milena-wound Skin Appearance) No Abnormality -Color (Milena-wound Skin Appearance) No Abnormality -Temperature (Milena-wound Skin No Abnormality Appearance) (Pt Warm) -Ulcer Cleansing Soap and water -Anesthetic Used 5% Lidocaine Gel WC - Nurse 2 - General Ulcer CM Notes Start: 08/10/20 09:54 Freq: Status: Active Protocol: Activity Type Activity Date Activity User E-Sign Co-Sign Detail Recorded Client Recorded Date Recorded By Document 08/10/20 10:16 MW [id number] 08/10/20 10:20 MW 08/10/20 10:16 Wound Center Nurse 2 -Time 10:16 -Correct Patient Yes -Correct Side, Site, Position Yes -Correct Procedure Yes -Procedure Performed Yes -Type of Procedure Debridement -Clinical Debridement Subcutaneous -Tissue Removed Subcutaneous -Post Debridement (cm) - Length 1.7 -Post Debridement (cm) - Width 1.7 -Post Debridement (cm) - Depth 0.1 -Total Square (Post) (cm) 2.89 -Area of Debridement (cm) - Length 1.7 -Area of Debridement (cm) - Width 1.7 -Total Square (Area) (cm) 2.89 -Tunneling No -Undermining/Tunneling No -Circular Undermining No -Wound/Ulcer Outcome Not Healed -Ulcer Cleansing Rinsed/ Irrigated with Saline -Foul Odor after Cleansing No -Bioengineered Tissue No -Bleeding Controlled with Pressure -Offloading No -Treatment Response Procedure Tolerated Well -Debridement - Subq, 1st 20sq cm Yes Pain Scale: 0-10 Numeric Is Patient Pain Free? Yes WC - Nurse 3 - General Ulcer D/C NN Start: 08/10/20 09:54 Freq: Status: Active Protocol: Activity Type Activity Date Activity User E-Sign Co-Sign Detail Recorded Client Recorded Date Recorded By Document 08/10/20 10:43 PL [id number] 08/10/20 10:44 PL 08/10/20 10:43 Wound Care Nurse 3 #5 right lateral upper leg -Ulcer Cleansing Rinsed/ Irrigated with Saline -Foul Odor after Cleansing No -Primary Dressing Applied Aquacel Extra -Aquacel Extra 1 Bilateral -Multi-Layered Wrap Application Multi-Layer Comp - Bilat ($ ) WC - Visit Discharge Discharge Condition Stable Ambulatory Status Ambulatory Clinical Summary of Care Provided Yes Wound debrided: Right lower extremity Type of Debridement: Excisional debridement Anesthesia Used: 4% Lidocaine Solution Depth: Down to and including healthy tissue and in the subcutaneous layer Percentage of wound debrided: 100 Instrument Used: 5mm curette Tissue Removed: Slough and devitalized tissue Severity: Fat Layer Exposed Amount of bleeding with debridement: Mild Bleeding Controlled with: Pressure Patient tolerated procedure: Patient tolerated procedure well Assessment/Plan Assessment/Plan (1) Ulcer of left lower extremity with fat layer exposed: CODE(S): L97.922 - Non-pressure chronic ulcer of unspecified part of left lower leg with fat layer exposed (2) Ulcer of right lower extremity with fat layer exposed: CODE(S): L97.912 - Non-pressure chronic ulcer of unspecified part of right lower leg with fat layer exposed (3) Venous insufficiency of both lower extremities: CODE(S): I87.2 - Venous insufficiency (chronic) (peripheral) PLAN: Some worsening noted. As above, 3M wrap not applied properly by home health. Debridement done as documented above, procedure was well-tolerated. Continue Aquacel with Adaptic over top. 3M wraps for edema management. Change on Friday by HH. Elevate lower extremity when sitting up and in bed. Optimal protein intake. Exercise as tolerated. His questions were answered and he was advised to call with any further questions or concerns. Venous and vascular studies reviewed. Follow-up in a week. This note was generated with [employer] dictation software. It may contain incorrect words, spelling, and punctuation that were not noted in checking the note before signing.
[2020-08-17 09:38] VITALS: BP 118/47; PULSE 69; RESP 18; TEMP 35.7
--- NOTE | 2020-08-17 13:12 | PCM.WC.PN ---
History of Present Illness Date of Service: 08/17/20 Chief Complaint: Non Healing bilateral lower extremity ulcer History of Wound: Mr. Lazcano is a 74-year-old with past medical history as documented above who was referred to the wound center by his primary care physician due to nonhealing bilateral lower extremity ulcers. Said to have started months ago. 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 Has been having ary wraps bilaterally which has helped with the swelling but ulcerations have persisted. He sleeps in a chair/recliner. No similar history in the past. No chills, fever or otherwise feeling of unwell. Subjective Subjective No new concerns at this time. Minimal area left. Objective Data Objective Data Vital Signs: Vital Signs Temp Pulse Resp BP Pulse Ox 96.2 F L 69 18 118/47 L 98 08/17/20 09:38 08/17/20 09:38 08/17/20 09:38 08/17/20 09:38 08/08/20 00:35 Oxygen Flow Rate (L/min) 2 Oxygen Delivery Method Nasal Cannula Charges/Coding Visit Charges Office Visits / Consults: 71983 OV L3 Est Physical Exam Const alert, oriented x3 and no apparent distress General Appearance: cooperative HEENT normocephalic and hearing grossly normal bilaterally Head and Scalp: normal to inspection and atraumatic Eyes EOMs intact bilaterally Neck full ROM and supple General: normal visual inspection Resp normal respiratory effort Effort and Inspection: able to speak in complete sentences Skin Wounds: wounds noted Neuro oriented x3, CN's II-XII intact bilaterally and moves all extremities Psych mental status grossly normal Appearance: grossly normal Debridement Note Debridement Note Post-Debridement Measurements and Additional Note: Post-Debridement Measurements/Treatment - Nurse 1 - General Ulcer Assessment Start: 08/10/20 09:54 Freq: Status: Active Protocol: JESSEE.LOWVIV Activity Type Activity Date Activity User E-Sign Co-Sign Detail Recorded Client Recorded Date Recorded By Document 08/10/20 09:54 PL [id number] 08/10/20 10:07 PL Document 08/17/20 09:38 PL [id number] 08/17/20 09:56 PL 08/10/20 08/17/20 09:54 09:38 - Today's Visit Information Type of service Follow-up Visit Follow-up Visit (Physician/CASHIER OR CHECKER STOCK CLERK (Physician/CASHIER OR CHECKER STOCK CLERK ) ) Arrival Mode Ambulatory Ambulatory Transfer Assistance None None Patient Identification Verified (Name & Yes Yes ) Patient Requires Transmission-Based No No Precautions Safety Precautions NA Vital Signs Temperature (97.8 F-99.1 F) 97.6 F L 96.2 F L Temperature Source Temporal Temporal Pulse Rate (60-100) 68 69 Respiratory Rate (12-18) 18 18 Oxygen Delivery Method Nasal Cannula Blood Pressure (90/60-120/80) 128/46 H 118/47 L Blood Pressure Mean (mm Hg) 73 70 History Since Last Visit- (Skip if this is Patient's initial visit) Have you changed medications since your No No last visit? Any new allergies or adverse reactions No No Had a fall/change in ADL's that may No No increase risk of falls Signs or symptoms of abuse and/or No No neglect since last visit Have you been in the hospital since your No No last visit? Has dressing in place as prescribed Yes Yes Has compression in place as prescribed Yes Yes Has offloadiing in place as prescribed N/A N/A Experienced any changes in pain level or No No management Pain Scale: 0-10 Numeric Is Patient Pain Free? Yes Yes WC - Nurse 1 - General Ulcer Measurement Start: 08/10/20 09:54 Freq: Status: Active Protocol: Activity Type Activity Date Activity User E-Sign Co-Sign Detail Recorded Client Recorded Date Recorded By Document 08/10/20 09:54 PL [id number] 08/10/20 10:07 PL Document 08/17/20 09:38 PL [id number] 08/17/20 09:56 PL 08/10/20 08/17/20 09:54 09:38 Wound Center Nurse 1 #5 right lateral upper leg -Combined with other wound No No -Current Size (cm) - Length 1.3 0.1 -Current Size (cm) - Width 1.5 0.1 -Current Size (cm) - Depth 0.1 0.1 -Total Square Cm 1.95 0.01 -Photo Taken No No -Epithelialization None Present Large 67-100% -Tunneling No No -Undermining/Tunneling No No -Circular Undermining No No -Exudate Amt Medium None Present -Exudate Type Serosanguineous -Wound Margin Indistinct, Non -Visible -Granulation Amt Large (67-100%) Large (67-100%) -Granulation Quality [place] Pale -Slough/Fibrin No No -Necrosis Amt Small (1-33%) -Necrotic Tissue Type Adherent Slough -Texture (Milena-wound Skin Appearance) No Abnormality -Moisture (Milena-wound Skin Appearance) No Abnormality Dry/Scaly -Color (Milena-wound Skin Appearance) No Abnormality -Temperature (Milena-wound Skin No Abnormality Appearance) (Pt Warm) -Ulcer Cleansing Soap and water Soap and Water -Anesthetic Used 5% Lidocaine 5% Lidocaine Gel Gel WC - Nurse 2 - General Ulcer CM Notes Start: 08/10/20 09:54 Freq: Status: Active Protocol: Activity Type Activity Date Activity User E-Sign Co-Sign Detail Recorded Client Recorded Date Recorded By Document 08/10/20 10:16 MW [id number] 08/10/20 10:20 MW Document 08/17/20 10:21 MW [id number] 08/17/20 10:24 MW 08/10/20 08/17/20 10:16 10:21 Wound Center Nurse 2 #5 right lateral upper leg -Time 10:16 10:23 -Correct Patient Yes Yes -Correct Side, Site, Position Yes Yes -Correct Procedure Yes Yes -Procedure Performed Yes No -Type of Procedure Debridement -Clinical Debridement Subcutaneous -Tissue Removed Subcutaneous -Post Debridement (cm) - Length 1.7 0.1 -Post Debridement (cm) - Width 1.7 0.1 -Post Debridement (cm) - Depth 0.1 0.1 -Total Square (Post) (cm) 2.89 0.01 -Area of Debridement (cm) - Length 1.7 -Area of Debridement (cm) - Width 1.7 -Total Square (Area) (cm) 2.89 -Tunneling No No -Undermining/Tunneling No No -Circular Undermining No No -Wound/Ulcer Outcome Not Healed Not Healed -Ulcer Cleansing Rinsed/ Rinsed/ Irrigated with Irrigated with Saline Saline -Foul Odor after Cleansing No No -Bioengineered Tissue No No -Bleeding Controlled with Pressure Pressure -Offloading No No -Treatment Response Procedure Procedure Tolerated Well Tolerated Well -Debridement - Subq, 1st 20sq cm Yes Pain Scale: 0-10 Numeric Is Patient Pain Free? Yes Yes WC - Nurse 3 - General Ulcer D/C NN Start: 08/10/20 09:54 Freq: Status: Active Protocol: Activity Type Activity Date Activity User E-Sign Co-Sign Detail Recorded Client Recorded Date Recorded By Document 08/10/20 10:43 PL [id number] 08/10/20 10:44 PL Document 08/17/20 10:54 PL [id number] 08/17/20 10:55 PL 08/10/20 08/17/20 10:43 10:54 Wound Care Nurse 3 #5 right lateral upper leg -Ulcer Cleansing Rinsed/ Rinsed/ Irrigated with Irrigated with Saline Saline -Foul Odor after Cleansing No No -Primary Dressing Applied Aquacel Extra -Other Dressing Adaptic -Aquacel Extra 1 Bilateral -Multi-Layered Wrap Application Multi-Layer Multi-Layer Comp - Bilat ($ Comp - Bilat ($ ) ) Pain Scale: 0-10 Numeric Is Patient Pain Free? 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 Minimal area left. No debridement done. Adaptic over right lateral leg. 3M wraps for edema management. Elevate lower extremity when seated and in bed. Optimal protein intake. Exercise as tolerated. His questions were answered and he was advised to call with any further questions or concerns. Follow-up in a week. This note was generated with [employer] software. It may contain incorrect words, spelling, and punctuation that were not noted in checking the note before signing.
[2020-08-24 09:50] VITALS: BP 118/36; PULSE 63; RESP 18; TEMP 36.3
--- NOTE | 2020-08-24 12:56 | PCM.WC.PN ---
History of Present Illness Date of Service: 08/24/20 Chief Complaint: Non Healing bilateral lower extremity ulcer History of Wound: Mr. Lazcano is a 74-year-old with past medical history as documented above who was referred to the wound center by his primary care physician due to nonhealing bilateral lower extremity ulcers. Said to have started months ago. Initially seen by his retail loss prevention officer who referred him to a primary care physician. Has been having ary wraps bilaterally which has helped with the swelling but ulcerations have persisted. He sleeps in a chair/recliner. No similar history in the past. No chills, fever or otherwise feeling of unwell. Subjective Subjective Presents with a new right medial ankle ulcer. Denies any known precipitating factor. 3M wrap worn out at the area of ulceration. He states that he must have walked around more over the past week. Objective Data Objective Data Vital Signs: Vital Signs Temp Pulse Resp BP Pulse Ox 97.4 F L 63 18 118/36 L 98 08/24/20 09:50 08/24/20 09:50 08/24/20 09:50 08/24/20 09:50 08/08/20 00:35 Oxygen Flow Rate (L/min) 2 Oxygen Delivery Method Nasal Cannula Charges/Coding Procedures Integumentary 111xxx-113xx: [id number] June subq tissue 20 sq cm/< (Superficial debridement done.) Physical Exam Const alert, oriented x3 and no apparent distress General Appearance: cooperative HEENT normocephalic and hearing grossly normal bilaterally Head and Scalp: normal to inspection and atraumatic Eyes EOMs intact bilaterally Neck full ROM and supple General: normal visual inspection Resp normal respiratory effort Effort and Inspection: able to speak in complete sentences Skin Wounds: wounds noted Neuro oriented x3, CN's II-XII intact bilaterally and moves all extremities Psych mental status grossly normal Appearance: grossly normal Debridement Note Debridement Note Post-Debridement Measurements and Additional Note: Post-Debridement Measurements/Treatment WC - Nurse 1 - General Ulcer Assessment Start: 08/10/20 09:54 Freq: Status: Active Protocol: JACINTO Activity Type Activity Date Activity User E-Sign Co-Sign Detail Recorded Client Recorded Date Recorded By Document 08/10/20 09:54 PL [id number] 08/10/20 10:07 PL Document 08/17/20 09:38 PL [id number] 08/17/20 09:56 PL Document 08/24/20 09:50 PL [id number] 08/24/20 10:06 PL 08/10/20 08/17/20 08/24/20 09:54 09:38 09:50 - Today's Visit Information Type of service Follow-up Visit Follow-up Visit Follow-up Visit (Physician/REFRIGERATION ENGINEER (Physician/REFRIGERATION ENGINEER (Physician/REFRIGERATION ENGINEER ) ) ) Arrival Mode Ambulatory Ambulatory Ambulatory Transfer Assistance None None None Patient Identification Verified (Name & Yes Yes Yes ) Patient Requires Transmission-Based No No No Precautions Safety Precautions NA NA Vital Signs Temperature (97.8 F-99.1 F) 97.6 F L 96.2 F L 97.4 F L Temperature Source Temporal Temporal Temporal Pulse Rate (60-100) 68 69 63 Respiratory Rate (12-18) 18 18 18 Oxygen Delivery Method Nasal Cannula Blood Pressure (90/60-120/80) 128/46 H 118/47 L 118/36 L Blood Pressure Mean (mm Hg) 73 70 63 History Since Last Visit- (Skip if this is Patient's initial visit) Have you changed medications since your No No No last visit? Any new allergies or adverse reactions No No No Had a fall/change in ADL's that may No No No increase risk of falls Signs or symptoms of abuse and/or No No No neglect since last visit Have you been in the hospital since your No No No last visit? Has dressing in place as prescribed Yes Yes Yes Has compression in place as prescribed Yes Yes Yes Has offloadiing in place as prescribed N/A N/A N/A Experienced any changes in pain level or No No No management Pain Scale: 0-10 Numeric Is Patient Pain Free? Yes Yes - Nurse 1 - General Ulcer Measurement Start: 08/10/20 09:54 Freq: Status: Active Protocol: Activity Type Activity Date Activity User E-Sign Co-Sign Detail Recorded Client Recorded Date Recorded By Document 08/10/20 09:54 PL [id number] 08/10/20 10:07 PL Document 08/17/20 09:38 PL [id number] 08/17/20 09:56 PL Document 08/24/20 09:50 PL [id number] 08/24/20 10:06 PL 08/10/20 08/17/20 08/24/20 09:54 09:38 09:50 Wound Center Nurse 1 #6 Right Med Ankle -Combined with other wound No -Current Size (cm) - Length 1.0 -Current Size (cm) - Width 1.3 -Current Size (cm) - Depth 0.1 -Total Square Cm 1.30 -Date of Last Picture (Recall this 08/24/20 field) -Photo Taken Yes -Epithelialization None Present -Tunneling No -Undermining/Tunneling No -Circular Undermining No -Classification - Thickness Partial Thickness -Exudate Amt Medium -Exudate Type Serosanguineous -Wound Margin Flat & Intact -Granulation Amt Large (67-100%) -Granulation Quality [place] -Slough/Fibrin Yes -Necrosis Amt Small (1-33%) -Necrotic Tissue Type Adherent Slough -Texture (Milena-wound Skin Appearance) No Abnormality -Moisture (Milena-wound Skin Appearance) No Abnormality -Color (Milena-wound Skin Appearance) No Abnormality -Temperature (Milena-wound Skin No Abnormality Appearance) (Pt Warm) -Ulcer Cleansing Soap and Water -Foul Odor after Cleansing No -Anesthetic Used 5% Lidocaine Gel #5 right lateral upper leg -Combined with other wound No No -Current Size (cm) - Length 1.3 0.1 -Current Size (cm) - Width 1.5 0.1 -Current Size (cm) - Depth 0.1 0.1 -Total Square Cm 1.95 0.01 -Photo Taken No No -Epithelialization None Present Large 67-100% -Tunneling No No -Undermining/Tunneling No No -Circular Undermining No No -Exudate Amt Medium None Present -Exudate Type Serosanguineous -Wound Margin Indistinct, Non -Visible -Granulation Amt Large (67-100%) Large (67-100%) -Granulation Quality [place] Pale -Slough/Fibrin No No -Necrosis Amt Small (1-33%) -Necrotic Tissue Type Adherent Slough -Texture (Milena-wound Skin Appearance) No Abnormality -Moisture (Milena-wound Skin Appearance) No Abnormality Dry/Scaly -Color (Milena-wound Skin Appearance) No Abnormality -Temperature (Milena-wound Skin No Abnormality Appearance) (Pt Warm) -Ulcer Cleansing Soap and water Soap and Water -Anesthetic Used 5% Lidocaine 5% Lidocaine Gel Gel WC - Nurse 2 - General Ulcer CM Notes Start: 06/03/21 09:54 Freq: Status: Active Protocol: Activity Type Activity Date Activity User E-Sign Co-Sign Detail Recorded Client Recorded Date Recorded By Document 08/10/20 10:16 MW [id number] 08/10/20 10:20 MW Document 08/17/20 10:21 MW [id number] 08/17/20 10:24 MW Document 08/24/20 10:25 MW [id number] 08/24/20 10:27 MW 08/10/20 08/17/20 08/24/20 10:16 10:21 10:25 Wound Center Nurse 2 #6 Right Med Ankle -Time 10:26 -Correct Patient Yes -Correct Side, Site, Position Yes -Correct Procedure Yes -Procedure Performed Yes -Type of Procedure Debridement -Clinical Debridement Subcutaneous -Tissue Removed Subcutaneous -Post Debridement (cm) - Length 1.0 -Post Debridement (cm) - Width 1.4 -Post Debridement (cm) - Depth 0.1 -Total Square (Post) (cm) 1.40 -Area of Debridement (cm) - Length 1.0 -Area of Debridement (cm) - Width 1.4 -Total Square (Area) (cm) 1.40 -Tunneling No -Undermining/Tunneling No -Circular Undermining No -Wound/Ulcer Outcome Not Healed -Ulcer Cleansing Rinsed/ Irrigated with Saline -Foul Odor after Cleansing No -Bioengineered Tissue No -Bleeding Controlled with Pressure -Offloading No -Treatment Response Procedure Tolerated Well -Debridement - Subq, 1st 20sq cm Yes #5 right lateral upper leg -Time 10:16 10:23 10:26 -Correct Patient Yes Yes Yes -Correct Side, Site, Position Yes Yes Yes -Correct Procedure Yes Yes Yes -Procedure Performed Yes No No -Type of Procedure Debridement -Clinical Debridement Subcutaneous -Tissue Removed Subcutaneous -Post Debridement (cm) - Length 1.7 0.1 0 -Post Debridement (cm) - Width 1.7 0.1 0 -Post Debridement (cm) - Depth 0.1 0.1 0 -Total Square (Post) (cm) 2.89 0.01 0 -Area of Debridement (cm) - Length 1.7 -Area of Debridement (cm) - Width 1.7 -Total Square (Area) (cm) 2.89 -Tunneling No No -Undermining/Tunneling No No -Circular Undermining No No -Wound/Ulcer Outcome Not Healed Not Healed Healed- Epithelialized -Ulcer Cleansing Rinsed/ Rinsed/ Irrigated with Irrigated with Saline Saline -Foul Odor after Cleansing No No -Bioengineered Tissue No No -Bleeding Controlled with Pressure Pressure -Offloading No No -Treatment Response Procedure Procedure Tolerated Well Tolerated Well -Debridement - Subq, 1st 20sq cm Yes Pain Scale: 0-10 Numeric Is Patient Pain Free? Yes Yes Yes WC - Nurse 3 - General Ulcer D/C NN Start: 08/10/20 09:54 Freq: Status: Active Protocol: Activity Type Activity Date Activity User E-Sign Co-Sign Detail Recorded Client Recorded Date Recorded By Document 08/10/20 10:43 PL [id number] 08/10/20 10:44 PL Document 08/17/20 10:54 PL [id number] 08/17/20 10:55 PL Document 08/24/20 10:49 RB [id number] 08/24/20 10:50 RB 08/10/20 08/17/20 08/24/20 10:43 10:54 10:49 Wound Care Nurse 3 #6 Right Med Ankle -Ulcer Cleansing Wound Cleanser -Primary Dressing Applied Aquacel Extra, NonAdherent Contact Layer -Primary Dressing Covered/Secured with Dry Gauze -Aquacel Extra 1 #5 right lateral upper leg -Ulcer Cleansing Rinsed/ Rinsed/ Irrigated with Irrigated with Saline Saline -Foul Odor after Cleansing No No -Primary Dressing Applied Aquacel Extra -Other Dressing Adaptic -Aquacel Extra 1 Bilateral -Multi-Layered Wrap Application Multi-Layer Multi-Layer Multi-Layer Comp - Bilat ($ Comp - Bilat ($ Comp - Bilat ($ ) ) ) Treatment Response Procedure Tolerated Well Pain Scale: 0-10 Numeric Is Patient Pain Free? Yes Yes WC - Visit Discharge Discharge Condition Stable Stable Stable Ambulatory Status Ambulatory Ambulatory Ambulatory,Cane Transportation Private Auto Private Auto Medication Reconcilliation completed & No provided to patient/care provider Clinical Summary of Care Provided Yes Yes Yes Wound debrided: Right medial ankle Type of Debridement: Selective debridement Anesthesia Used: 4% Lidocaine Solution Depth: Down to and including healthy tissue Percentage of wound debrided: 100 Instrument Used: 3mm curette Tissue Removed: Devitalized tissue Severity: Limited To Skin Breakdown Amount of bleeding with debridement: Mild Bleeding Controlled with: Pressure Patient tolerated procedure: Patient tolerated procedure well Assessment/Plan Assessment/Plan (1) Ulcer of left lower extremity with fat layer exposed: CODE(S): L97.922 - Non-pressure chronic ulcer of unspecified part of left lower leg with fat layer exposed (2) Ulcer of right lower extremity with fat layer exposed: CODE(S): L97.912 - Non-pressure 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 No known precipitating factor. Superficial debridement done. Aquacel and Adaptic over area. 3M wraps for edema management. Elevate lower extremity when seated and in bed. Optimal protein intake. Exercise as tolerated. His questions were answered and he was advised to call with any further questions or concerns. Follow-up in a week. This note was generated with [employer] dictation software. It may contain incorrect words, spelling, and punctuation that were not noted in checking the note before signing.
[2020-08-31 09:53] VITALS: BP 120/40; PULSE 65; RESP 18; TEMP 36.4
--- NOTE | 2020-08-31 13:03 | PN.PCM_ITS ---
History of Present Illness Date of Service: 08/31/20 Chief Complaint: Non Healing bilateral lower extremity ulcer History of Wound: Mr. Lazcano is a 74-year-old with past medical history as documented above who was referred to the wound center by his primary care physician due to nonhealing bilateral lower extremity ulcers. Said to have started months ago. Initially seen by his prospecting driller who referred him to a primary care physician. Has been having ary wraps bilaterally which has helped with the swelling but ulcerations have persisted. He sleeps in a chair/recliner. No similar history in the past. No chills, fever or otherwise feeling of unwell. Subjective Subjective Prior ulcers are healed. New areas where patient states that he has been picking at. He states that his had a lot of itching. Currently not on any oral medication but was recently started on what he calls a atiya by dermatology. He is unsure of the name. Has been applying adjust to his upper extremities. Objective Data Objective Data Vital Signs: Vital Signs Temp Pulse Resp BP Pulse Ox 97.6 F L 65 18 120/40 L 98 08/31/20 09:53 08/31/20 09:53 08/31/20 09:53 08/31/20 09:53 08/08/20 00:35 Oxygen Flow Rate (L/min) 2 Oxygen Delivery Method Nasal Cannula Charges/Coding Visit Charges Office Visits / Consults: 27542 OV L4 Est Physical Exam Const alert, oriented x3 and no apparent distress General Appearance: cooperative HEENT normocephalic and hearing grossly normal bilaterally Head and Scalp: normal to inspection and atraumatic Eyes EOMs intact bilaterally Neck full ROM and supple General: normal visual inspection Resp normal respiratory effort Effort and Inspection: able to speak in complete sentences Skin Wounds: wounds noted Neuro oriented x3, CN's II-XII intact bilaterally and moves all extremities Psych mental status grossly normal Appearance: grossly normal Debridement Note Debridement Note Post-Debridement Measurements and Additional Note: Post-Debridement Measurements/Treatment WC - Nurse 1 - General Ulcer Assessment Start: 08/10/20 09:54 Freq: Status: Active Protocol: JESSEE.LOWTIFFANIET Activity Type Activity Date Activity User E-Sign Co-Sign Detail Recorded Client Recorded Date Recorded By Document 08/10/20 09:54 PL [id number] 08/10/20 10:07 PL Document 08/17/20 09:38 PL [id number] 08/17/20 09:56 PL Document 08/24/20 09:50 PL [id number] 08/24/20 10:06 PL Document 08/31/20 09:53 PL [id number] 08/31/20 10:03 PL 08/10/20 08/17/20 08/24/20 09:54 09:38 09:50 - Today's Visit Information Type of service Follow-up Visit Follow-up Visit Follow-up Visit (Physician/BOARD MILL SUPERVISOR (Physician/BOARD MILL SUPERVISOR (Physician/BOARD MILL SUPERVISOR ) ) ) Arrival Mode Ambulatory Ambulatory Ambulatory Transfer Assistance None None None Patient Identification Verified (Name & Yes Yes Yes ) Patient Requires Transmission-Based No No No Precautions Safety Precautions NA NA Vital Signs Temperature (97.8 F-99.1 F) 97.6 F L 96.2 F L 97.4 F L Temperature Source Temporal Temporal Temporal Pulse Rate (60-100) 68 69 63 Respiratory Rate (12-18) 18 18 18 Oxygen Delivery Method Nasal Cannula Blood Pressure (90/60-120/80) 128/46 H 118/47 L 118/36 L Blood Pressure Mean (mm Hg) 73 70 63 History Since Last Visit- (Skip if this is Patient's initial visit) Have you changed medications since your No No No last visit? Any new allergies or adverse reactions No No No Had a fall/change in ADL's that may No No No increase risk of falls Signs or symptoms of abuse and/or No No No neglect since last visit Have you been in the hospital since your No No No last visit? Has dressing in place as prescribed Yes Yes Yes Has compression in place as prescribed Yes Yes Yes Has offloadiing in place as prescribed N/A N/A N/A Experienced any changes in pain level or No No No management Pain Scale: 0-10 Numeric Is Patient Pain Free? Yes Yes 08/31/20 09:53 - Today's Visit Information Type of service Follow-up Visit (Physician/BOARD MILL SUPERVISOR ) Arrival Mode Ambulatory Transfer Assistance None Patient Identification Verified (Name & Yes ) Patient Requires Transmission-Based No Precautions Safety Precautions NA Vital Signs Temperature (97.8 F-99.1 F) 97.6 F L Temperature Source Temporal Pulse Rate (60-100) 65 Respiratory Rate (12-18) 18 Oxygen Delivery Method Blood Pressure (90/60-120/80) 120/40 L Blood Pressure Mean (mm Hg) 66 History Since Last Visit- (Skip if this is Patient's initial visit) Have you changed medications since your No last visit? Any new allergies or adverse reactions No Had a fall/change in ADL's that may No increase risk of falls Signs or symptoms of abuse and/or No neglect since last visit Have you been in the hospital since your No last visit? Has dressing in place as prescribed Yes Has compression in place as prescribed Yes Has offloadiing in place as prescribed N/A Experienced any changes in pain level or No management Pain Scale: 0-10 Numeric Is Patient Pain Free? Yes WC - Nurse 1 - General Ulcer Measurement Start: 08/10/20 09:54 Freq: Status: Active Protocol: Activity Type Activity Date Activity User E-Sign Co-Sign Detail Recorded Client Recorded Date Recorded By Document 08/10/20 09:54 PL [id number] 08/10/20 10:07 PL Document 08/17/20 09:38 PL [id number] 08/17/20 09:56 PL Document 08/24/20 09:50 PL [id number] 08/24/20 10:06 PL Document 08/31/20 09:53 PL [id number] 08/31/20 10:03 PL 08/10/20 08/17/20 08/24/20 09:54 09:38 09:50 Wound Center Nurse 1 #6 Right Med Ankle -Combined with other wound No -Current Size (cm) - Length 1.0 -Current Size (cm) - Width 1.3 -Current Size (cm) - Depth 0.1 -Total Square Cm 1.30 -Date of Last Picture (Recall this 08/24/20 field) -Photo Taken Yes -Epithelialization None Present -Tunneling No -Undermining/Tunneling No -Circular Undermining No -Classification - Thickness Partial Thickness -Exudate Amt Medium -Exudate Type Serosanguineous -Wound Margin Flat & Intact -Granulation Amt Large (67-100%) -Granulation Quality [place] -Slough/Fibrin Yes -Necrosis Amt Small (1-33%) -Necrotic Tissue Type Adherent Slough -Texture (Milena-wound Skin Appearance) No Abnormality -Moisture (Milena-wound Skin Appearance) No Abnormality -Color (Milena-wound Skin Appearance) No Abnormality -Temperature (Milena-wound Skin No Abnormality Appearance) (Pt Warm) -Ulcer Cleansing Soap and Water -Foul Odor after Cleansing No -Anesthetic Used 5% Lidocaine Gel #5 right lateral upper leg -Combined with other wound No No -Current Size (cm) - Length 1.3 0.1 -Current Size (cm) - Width 1.5 0.1 -Current Size (cm) - Depth 0.1 0.1 -Total Square Cm 1.95 0.01 -Photo Taken No No -Epithelialization None Present Large 67-100% -Tunneling No No -Undermining/Tunneling No No -Circular Undermining No No -Exudate Amt Medium None Present -Exudate Type Serosanguineous -Wound Margin Indistinct, Non -Visible -Granulation Amt Large (67-100%) Large (67-100%) -Granulation Quality [place] Pale -Slough/Fibrin No No -Necrosis Amt Small (1-33%) -Necrotic Tissue Type Adherent Slough -Texture (Milena-wound Skin Appearance) No Abnormality -Moisture (Milena-wound Skin Appearance) No Abnormality Dry/Scaly -Color (Milena-wound Skin Appearance) No Abnormality -Temperature (Milena-wound Skin No Abnormality Appearance) (Pt Warm) -Ulcer Cleansing Soap and water Soap and Water -Anesthetic Used 5% Lidocaine 5% Lidocaine Gel Gel 08/31/20 09:53 Wound Center Nurse 1 #6 Right Med Ankle -Combined with other wound No -Current Size (cm) - Length 0 -Current Size (cm) - Width 0 -Current Size (cm) - Depth 0 -Total Square Cm 0 -Date of Last Picture (Recall this field) -Photo Taken No -Epithelialization None Present -Tunneling -Undermining/Tunneling -Circular Undermining -Classification - Thickness -Exudate Amt Small -Exudate Type Serosanguineous -Wound Margin -Granulation Amt Large (67-100%) -Granulation Quality [place] -Slough/Fibrin No -Necrosis Amt -Necrotic Tissue Type -Texture (Milena-wound Skin Appearance) -Moisture (Milena-wound Skin Appearance) -Color (Milena-wound Skin Appearance) -Temperature (Milena-wound Skin Appearance) -Ulcer Cleansing Soap and water -Foul Odor after Cleansing -Anesthetic Used #5 right lateral upper leg -Combined with other wound -Current Size (cm) - Length -Current Size (cm) - Width -Current Size (cm) - Depth -Total Square Cm -Photo Taken -Epithelialization -Tunneling -Undermining/Tunneling -Circular Undermining -Exudate Amt -Exudate Type -Wound Margin -Granulation Amt -Granulation Quality -Slough/Fibrin -Necrosis Amt -Necrotic Tissue Type -Texture (Milena-wound Skin Appearance) -Moisture (Milena-wound Skin Appearance) -Color (Milena-wound Skin Appearance) -Temperature (Milena-wound Skin Appearance) -Ulcer Cleansing -Anesthetic Used WC - Nurse 2 - General Ulcer CM Notes Start: 08/10/20 09:54 Freq: Status: Active Protocol: Activity Type Activity Date Activity User E-Sign Co-Sign Detail Recorded Client Recorded Date Recorded By Document 08/10/20 10:16 MW [id number] 08/10/20 10:20 MW Document 08/17/20 10:21 MW [id number] 08/17/20 10:24 MW Document 08/24/20 10:25 MW [id number] 08/24/20 10:27 MW Document 08/31/20 10:10 MW [id number] 08/31/20 10:14 MW 08/10/20 08/17/20 08/24/20 10:16 10:21 10:25 Wound Center Nurse 2 #7 left lateral superior LE -Time -Correct Patient -Correct Side, Site, Position -Correct Procedure -Procedure Performed -Post Debridement (cm) - Length -Post Debridement (cm) - Width -Post Debridement (cm) - Depth -Total Square (Post) (cm) -Tunneling -Undermining/Tunneling -Circular Undermining -Wound/Ulcer Outcome -Ulcer Cleansing -Foul Odor after Cleansing -Bioengineered Tissue -Bleeding Controlled with -Offloading #6 Right Med Ankle -Time 10:26 -Correct Patient Yes -Correct Side, Site, Position Yes -Correct Procedure Yes -Procedure Performed Yes -Type of Procedure Debridement -Clinical Debridement Subcutaneous -Tissue Removed Subcutaneous -Post Debridement (cm) - Length 1.0 -Post Debridement (cm) - Width 1.4 -Post Debridement (cm) - Depth 0.1 -Total Square (Post) (cm) 1.40 -Area of Debridement (cm) - Length 1.0 -Area of Debridement (cm) - Width 1.4 -Total Square (Area) (cm) 1.40 -Tunneling No -Undermining/Tunneling No -Circular Undermining No -Wound/Ulcer Outcome Not Healed -Ulcer Cleansing Rinsed/ Irrigated with Saline -Foul Odor after Cleansing No -Bioengineered Tissue No -Bleeding Controlled with Pressure -Offloading No -Treatment Response Procedure Tolerated Well -Debridement - Subq, 1st 20sq cm Yes #5 right lateral upper leg -Time 10:16 10:23 10:26 -Correct Patient Yes Yes Yes -Correct Side, Site, Position Yes Yes Yes -Correct Procedure Yes Yes Yes -Procedure Performed Yes No No -Type of Procedure Debridement -Clinical Debridement Subcutaneous -Tissue Removed Subcutaneous -Post Debridement (cm) - Length 1.7 0.1 0 -Post Debridement (cm) - Width 1.7 0.1 0 -Post Debridement (cm) - Depth 0.1 0.1 0 -Total Square (Post) (cm) 2.89 0.01 0 -Area of Debridement (cm) - Length 1.7 -Area of Debridement (cm) - Width 1.7 -Total Square (Area) (cm) 2.89 -Tunneling No No -Undermining/Tunneling No No -Circular Undermining No No -Wound/Ulcer Outcome Not Healed Not Healed Healed- Epithelialized -Ulcer Cleansing Rinsed/ Rinsed/ Irrigated with Irrigated with Saline Saline -Foul Odor after Cleansing No No -Bioengineered Tissue No No -Bleeding Controlled with Pressure Pressure -Offloading No No -Treatment Response Procedure Procedure Tolerated Well Tolerated Well -Debridement - Subq, 1st 20sq cm Yes Pain Scale: 0-10 Numeric Is Patient Pain Free? Yes Yes Yes 08/31/20 10:10 Wound Center Nurse 2 #7 left lateral superior LE -Time 10:12 -Correct Patient Yes -Correct Side, Site, Position Yes -Correct Procedure Yes -Procedure Performed No -Post Debridement (cm) - Length 0.1 -Post Debridement (cm) - Width 0.1 -Post Debridement (cm) - Depth 0.1 -Total Square (Post) (cm) 0.01 -Tunneling No -Undermining/Tunneling No -Circular Undermining No -Wound/Ulcer Outcome Not Healed -Ulcer Cleansing Not Cleansed -Foul Odor after Cleansing No -Bioengineered Tissue No -Bleeding Controlled with Pressure -Offloading No #6 Right Med Ankle -Time 10:11 -Correct Patient Yes -Correct Side, Site, Position Yes -Correct Procedure Yes -Procedure Performed No -Type of Procedure -Clinical Debridement -Tissue Removed -Post Debridement (cm) - Length 0.1 -Post Debridement (cm) - Width 0.1 -Post Debridement (cm) - Depth 0.1 -Total Square (Post) (cm) 0.01 -Area of Debridement (cm) - Length -Area of Debridement (cm) - Width -Total Square (Area) (cm) -Tunneling No -Undermining/Tunneling No -Circular Undermining No -Wound/Ulcer Outcome Not Healed -Ulcer Cleansing Rinsed/ Irrigated with Saline -Foul Odor after Cleansing No -Bioengineered Tissue -Bleeding Controlled with -Offloading -Treatment Response -Debridement - Subq, 1st 20sq cm #5 right lateral upper leg -Time -Correct Patient -Correct Side, Site, Position -Correct Procedure -Procedure Performed -Type of Procedure -Clinical Debridement -Tissue Removed -Post Debridement (cm) - Length -Post Debridement (cm) - Width -Post Debridement (cm) - Depth -Total Square (Post) (cm) -Area of Debridement (cm) - Length -Area of Debridement (cm) - Width -Total Square (Area) (cm) -Tunneling -Undermining/Tunneling -Circular Undermining -Wound/Ulcer Outcome -Ulcer Cleansing -Foul Odor after Cleansing -Bioengineered Tissue -Bleeding Controlled with -Offloading -Treatment Response -Debridement - Subq, 1st 20sq cm Pain Scale: 0-10 Numeric Is Patient Pain Free? WC - Nurse 3 - General Ulcer D/C NN Start: 08/10/20 09:54 Freq: Status: Active Protocol: Activity Type Activity Date Activity User E-Sign Co-Sign Detail Recorded Client Recorded Date Recorded By Document 08/10/20 10:43 PL [id number] 08/10/20 10:44 PL Document 08/17/20 10:54 PL [id number] 08/17/20 10:55 PL Document 08/24/20 10:49 RB [id number] 08/24/20 10:50 RB 08/10/20 08/17/20 08/24/20 10:43 10:54 10:49 Wound Care Nurse 3 #6 Right Med Ankle -Ulcer Cleansing Wound Cleanser -Primary Dressing Applied Aquacel Extra, NonAdherent Contact Layer -Primary Dressing Covered/Secured with Dry Gauze -Aquacel Extra 1 #5 right lateral upper leg -Ulcer Cleansing Rinsed/ Rinsed/ Irrigated with Irrigated with Saline Saline -Foul Odor after Cleansing No No -Primary Dressing Applied Aquacel Extra -Other Dressing Adaptic -Aquacel Extra 1 Bilateral -Multi-Layered Wrap Application Multi-Layer Multi-Layer Multi-Layer Comp - Bilat ($ Comp - Bilat ($ Comp - Bilat ($ ) ) ) Treatment Response Procedure Tolerated Well Pain Scale: 0-10 Numeric Is Patient Pain Free? Yes Yes WC - Visit Discharge Discharge Condition Stable Stable Stable Ambulatory Status Ambulatory Ambulatory Ambulatory,Cane Transportation Private Auto Private Auto Medication Reconcilliation completed & No provided to patient/care provider Clinical Summary of Care Provided Yes Yes Yes No debridement was completed: No debridement was completed today Assessment/Plan Assessment/Plan (1) Ulcer of left lower extremity with fat layer exposed: CODE(S): L97.922 - Non-pressure chronic ulcer of unspecified part of left lower leg with fat layer exposed (2) Ulcer of right lower extremity with fat layer exposed: CODE(S): L97.912 - Non-pressure chronic ulcer of unspecified part of right lower leg with fat layer exposed (3) Venous insufficiency of both lower extremities: CODE(S): I87.2 - Venous insufficiency (chronic) (peripheral) PLAN: No debridement completed today. Minimal area/superficial wounds from picking. Xyzal prescribed to help with generalized itching. Continue follow-up with dermatology. Yet to receive his compression stockings. Switch to double layer Tubigrip's. Continue Aquacel extra with Adaptic to open areas. Elevate lower extremity when seated and in bed. Optimal protein intake. Exercise as tolerated. His questions were answered and he was advised to call with any further questions or concerns. Follow-up in a week. This note was generated with [employer] software. It may contain incorrect words, spelling, and punctuation that were not noted in checking the note before signing.
== END 2020-09-06 23:59 ==
LOC: WC 09:45
PROVIDERS: PCP Family Medicine; Referring Provider Family Medicine; Visit Provider Internal Medicine
DX: I87.2 Venous insufficiency (chronic) (peripheral) (principal); L97.812 Non-pressure chronic ulcer of other part of right lower leg with fat layer exposed; L97.311 Non-pressure chronic ulcer of right ankle limited to breakdown of skin; L97.922 Non-pressure chronic ulcer of unspecified part of left lower leg with fat layer exposed; Z79.01 Long term (current) use of anticoagulants; Z79.82 Long term (current) use of aspirin; Z79.899 Other long term (current) drug therapy
CPT/HCPCS: 11042; 29581; 99213; G0463

== ENCOUNTER → 2020-09-07 08:30 | Outpatient (RCR) | payer MEDICARE, SELFPAY ==
[2020-09-07 00:26] VITALS: BP 120/40; PULSE 65; RESP 18; TEMP 36.4; O2SAT 98
[2020-09-07 08:06] VITALS: BP 118/48; PULSE 76; RESP 18; TEMP 36.7
--- NOTE | 2020-09-07 08:24 | PN.PCM_ITS ---
History of Present Illness Date of Service: 09/07/20 Chief Complaint: Non Healing bilateral lower extremity ulcer History of Wound: Mr. Lazcano is a 74-year-old with past medical history as documented above who was referred to the wound center by his primary care physician due to nonhealing bilateral lower extremity ulcers. Said to have started months ago. Initially seen by his refrigerating engineer who referred him to a primary care physician. Has been having ary wraps bilaterally which has helped with the swelling but ulcerations have persisted. He sleeps in a chair/recliner. No similar history in the past. No chills, fever or otherwise feeling of unwell. Subjective Subjective No new concerns. Ulcers are healed. Still has not received his compression stockings. He has been utilizing double layer Tubigrip. Objective Data Objective Data Vital Signs: Vital Signs Temp Pulse Resp BP Pulse Ox 98.0 F 76 18 118/48 L 98 09/07/20 08:06 09/07/20 08:06 09/07/20 08:06 09/07/20 08:06 09/07/20 00:26 Oxygen Flow Rate (L/min) 2 Oxygen Delivery Method Nasal Cannula Charges/Coding Visit Charges Office Visits / Consults: 42212 OV L3 Est Physical Exam Const alert, oriented x3 and no apparent distress General Appearance: cooperative HEENT normocephalic and hearing grossly normal bilaterally Head and Scalp: normal to inspection and atraumatic Eyes EOMs intact bilaterally Neck full ROM and supple General: normal visual inspection Resp normal respiratory effort Effort and Inspection: able to speak in complete sentences Skin Wounds: wounds noted Neuro oriented x3, CN's II-XII intact bilaterally and moves all extremities Psych mental status grossly normal Appearance: grossly normal Debridement Note Debridement Note Post-Debridement Measurements and Additional Note: Post-Debridement Measurements/Treatment JESSEE - Nurse 1 - General Ulcer Assessment Start: 09/07/20 08:06 Freq: Status: Active Protocol: JACINTO Activity Type Activity Date Activity User E-Sign Co-Sign Detail Recorded Client Recorded Date Recorded By Document 09/07/20 08:06 DELILAH [id number] 09/07/20 08:12 DELILAH 09/07/20 08:06 JESSEE - Today's Visit Information Type of service Follow-up Visit (Physician/AQUACULTURE DIRECTOR ) Arrival Mode Ambulatory Transfer Assistance None Patient Identification Verified (Name & Yes ) Patient Requires Transmission-Based No Precautions Safety Precautions NA Vital Signs Temperature (97.8 F-99.1 F) 98.0 F Temperature Source Oral Pulse Rate (60-100) 76 Respiratory Rate (12-18) 18 Oxygen Delivery Method Nasal Cannula Blood Pressure (90/60-120/80) 118/48 L Blood Pressure Mean (mm Hg) 71 History Since Last Visit- (Skip if this is Patient's initial visit) Have you changed medications since your No last visit? Any new allergies or adverse reactions No Had a fall/change in ADL's that may No increase risk of falls Signs or symptoms of abuse and/or No neglect since last visit Have you been in the hospital since your No last visit? Has dressing in place as prescribed Yes Has compression in place as prescribed Yes Has offloadiing in place as prescribed N/A Pain Scale: 0-10 Numeric Is Patient Pain Free? Yes WC - Nurse 1 - General Ulcer Measurement Start: 09/07/20 08:06 Freq: Status: Active Protocol: Activity Type Activity Date Activity User E-Sign Co-Sign Detail Recorded Client Recorded Date Recorded By Document 09/07/20 08:06 DELILAH [id number] 09/07/20 08:12 DELILAH 09/07/20 08:06 Wound Center Nurse 1 #7 left lateral superior LE -Current Size (cm) - Length 0 -Current Size (cm) - Width 0 -Current Size (cm) - Depth 0 -Total Square Cm 0 #6 Right Med Ankle -Current Size (cm) - Length 0 -Current Size (cm) - Width 0 -Current Size (cm) - Depth 0 -Total Square Cm 0 Assessment/Plan Assessment/Plan (1) Ulcer of left lower extremity with fat layer exposed: CODE(S): L97.922 - Non-pressure chronic ulcer of unspecified part of left lower leg with fat layer exposed (2) Ulcer of right lower extremity with fat layer exposed: CODE(S): L97.912 - Non-pressure chronic ulcer of unspecified part of right lower leg with fat layer exposed (3) Venous insufficiency of both lower extremities: CODE(S): I87.2 - Venous insufficiency (chronic) (peripheral) PLAN: No debridement completed today. Ulcers are healed. Continue moisturizing adequately and use topical steroids as prescribed by dermatology. OTC antihistamine for itching also discussed. Continue double layer Tubigrip for edema management. Wear in the morning and take off at night. Elevate lower extremity when seated and in bed. Optimal protein intake. Exercise as tolerated. His questions were answered and he was advised to call with any further questions or concerns. Discharged from the wound clinic This note was generated with [employer] software. It may contain incorrect words, spelling, and punctuation that were not noted in checking the note before signing.
== END | disposition home or self-care (01) ==
LOC: WC 07:45
PROVIDERS: PCP Family Medicine; Referring Provider Family Medicine; Visit Provider Internal Medicine
DX: Z09 Encounter for follow-up examination after completed treatment for conditions other than malignant neoplasm (principal); I87.2 Venous insufficiency (chronic) (peripheral); M79.89 Other specified soft tissue disorders; Z79.01 Long term (current) use of anticoagulants; Z79.82 Long term (current) use of aspirin; Z79.899 Other long term (current) drug therapy
CPT/HCPCS: 99213; G0463